=== PATIENT | male | born 1955 | race American Indian/Alaskan Native ===

== ENCOUNTER 2017-04-17 05:29 | Emergency (ER) | payer OTHER ==
[2017-04-17 05:51] VITALS: BMI 35.3
[2017-04-17 06:07] VITALS: TEMP 97.6
[2017-04-17 07:23] VITALS: BP 171/105; PULSE 76; RESP 18; O2SAT 97
--- NOTE | 2017-04-23 09:45 | ED PDOC ---
Arrival/HPI - General Chief Complaint: Back Pain Time Seen by Provider: 04/17/17 06:16 - History of Present Illness Narrative History of Present Illness (Text): 62M c/o intermittent bilateral mid-low back pain for the last 2 weeks, worse with movement. he also mentions a tingling sensation under his right armpit for about the same duration. ibuprofen has not helped much. no fever, weakness, numbness, incontinence, saddle anesthesia, or abdominal pain. 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 Past Medical History - Cardiac Hx Cardiac Disorders: Yes Hx Hypertension: Yes - Pulmonary Hx Respiratory Disorders: No - Neurological Hx Neurological Disorder: No - HEENT Hx HEENT Disorder: No - Renal Hx Renal Disorder: No - Endocrine/Metabolic Hx Endocrine Disorders: No - Hematological/Oncological Hx Anemia: Yes - Integumentary Hx Dermatological Disorder: No - Musculoskeletal/Rheumatological Hx Musculoskeletal Disorders: No - Gastrointestinal Hx Gastrointestinal Disorders: No - Genitourinary/Gynecological Hx Genitourinary Disorders: No - Psychiatric Hx Psychophysiologic Disorder: No Hx Substance Use: No - Surgical History Hx Appendectomy: Yes - Anesthesia Hx Anesthesia: Yes Hx Anesthesia Reactions: No Hx Malignant Hyperthermia: No Family/Social History Family/Social History: Other (nc) Smoking Status: Never Smoked Hx Alcohol Use: No Hx Substance Use: No Allergies/Home Meds Allergies/Adverse Reactions: Allergies ASIA Inhibitors Allergy (Severe, Verified 04/17/17 05:51) ANGIOEDEMA levofloxacin [From Levaquin] Allergy (Verified 04/17/17 05:51) ANAPHYLAXIS Home Medications: Home Meds Medication Instructions Recorded Confirmed Aspirin [Aspirin EC] 81 mg PO DAILY 04/30/16 04/17/17 Atorvastatin [Lipitor] 40 mg PO DIN 04/30/16 04/17/17 Furosemide [Lasix] 40 mg PO DAILY 04/30/16 04/17/17 Review of Systems - Review of Systems Constitutional: absent: Fatigue, Fevers Respiratory: absent: SOB, Cough Cardiovascular: absent: Chest Pain Gastrointestinal: absent: Abdominal Pain, Nausea, Vomiting Genitourinary Male: absent: Dysuria Musculoskeletal: Back Pain Neurological: absent: Headache, Focal Weakness, Speech Changes Physical Exam Vital Signs Reviewed: Yes Vital Signs Temp Pulse Resp BP Pulse Ox 04/17/17 07:22 76 18 171/105 H 97 04/17/17 06:55 196/126 H 04/17/17 06:54 74 198/126 H 04/17/17 06:06 97.6 F 77 17 176/106 H 99 Appearance: Positive for: Well-Appearing, Non-Toxic, Comfortable Pain Distress: None Mental Status: Positive for: Alert and Oriented X 3 - Systems Exam Head: Present: Atraumatic Pupils: Present: PERRL Extroacular Muscles: Present: EOMI Mouth: Present: Moist Mucous Membranes Neck: Present: Normal Range of Motion Respiratory/Chest: Present: Clear to Auscultation, Good Air Exchange. No: Respiratory Distress, Accessory Muscle Use Cardiovascular: Present: Regular Rate and Rhythm Abdomen: No: Tenderness, Distention Back: No: Midline Tenderness Upper Extremity: Present: NORMAL PULSES Lower Extremity: Present: NORMAL PULSES Neurological: Present: GCS=15, Motor Func Grossly Intact, Normal Sensory Function, Norm Deep Tendon Reflexes, Gait Normal, Other (no focal deficits) Skin: Present: Warm, Dry Psychiatric: Present: Alert, Oriented x 3 Medical Decision Making ED Course and Treatment: the pt appears well, no red flag sx for back pain which seems to be positional, normal neuro exam. will rx cyclobenzoprine and rec close f/u w pcp and return if worse pt v/u and agrees w plan - Medication Orders Current Medication Orders: Discontinued Medications Cyclobenzaprine HCl (Flexeril) 10 mg PO STAT STA Stop: 04/17/17 06:27 Last Admin: 04/17/17 06:55 Dose: 10 mg Furosemide (Lasix) 40 mg PO STAT STA Stop: 04/17/17 06:27 Last Admin: 04/17/17 06:55 Dose: 40 mg Ketorolac Tromethamine (Toradol) 15 mg IM STAT STA Stop: 04/17/17 06:27 Last Admin: 04/17/17 06:55 Dose: 15 mg Labetalol HCl (Trandate) 25 mg PO STAT STA Stop: 04/17/17 06:28 Last Admin: 04/17/17 06:54 Dose: 25 mg Disposition/Present on Arrival - Present on Arrival Any Indicators Present on Arrival: No History of DVT/PE: No History of Uncontrolled Diabetes: No Urinary Catheter: No History of Decub. Ulcer: No History Surgical Site Infection Following: None - Disposition Have Diagnosis and Disposition been Completed?: Yes Diagnosis: Back pain Disposition: HOME/ ROUTINE Disposition Time: :00 Condition: STABLE Discharge Instructions (ExitCare): Back Pain (ED) Additional Instructions: Please follow up with your doctor. Return to the ER for any worsening symptoms or for any other concerns. Prescriptions: Cyclobenzaprine [Cyclobenzaprine HCl] 10 mg PO TID PRN #20 tab PRN Reason: Pain, Severe (8-10) Forms: [employer] (Albanian)
== END 2017-04-17 07:24 | disposition home or self-care (01) ==
LOC: ED 05:29
DX: M54.5 Low back pain (principal); I10 Essential (primary) hypertension
CPT/HCPCS: 96372; 99283; J1885

== ENCOUNTER 2017-04-25 19:26 | Inpatient (IN) | payer OTHER ==
--- NOTE | 2017-04-25 20:12 | ED PDOC ---
Arrival/HPI - General Chief Complaint: Weakness/Neurological Deficit Time Seen by Provider: 04/25/17 19:42 Historian: Patient - History of Present Illness Narrative History of Present Illness (Text): 04/25/17 20:08 A 62 year old male whose past medical history includes, hypertension and stroke , resentes to the Emergency department with a complain of left sided weakness, numbness, and slurred speech. The patient notes that he had similar symptoms last night, but some symptoms improved. He states that at work today around 6PM the symptoms returned. The patient denies fevers, chills, headache, dizziness, chest pain, shortness of breath, nausea, vomiting,diarrhea, cough, or any other complaint. 04/25/17 21:06 Time/Duration: Other (Last nigth) Symptom Course: Unchanged Activities at Onset: Rest, Light Context: Work Past Medical History - Provider Review Nursing Documentation Reviewed: Yes - Cardiac Hx Cardiac Disorders: Yes Hx Hypertension: Yes - Pulmonary Hx Respiratory Disorders: No - Neurological Hx Neurological Disorder: No - HEENT Hx HEENT Disorder: No - Renal Hx Renal Disorder: No - Endocrine/Metabolic Hx Endocrine Disorders: No - Hematological/Oncological Hx Anemia: Yes - Integumentary Hx Dermatological Disorder: No - Musculoskeletal/Rheumatological Hx Musculoskeletal Disorders: No - Gastrointestinal Hx Gastrointestinal Disorders: No - Genitourinary/Gynecological Hx Genitourinary Disorders: No - Psychiatric Hx Psychophysiologic Disorder: No Hx Substance Use: No - Surgical History Hx Appendectomy: Yes - Anesthesia Hx Anesthesia: Yes Hx Anesthesia Reactions: No Hx Malignant Hyperthermia: No Family/Social History - Physician Review Nursing Documentation Reviewed: Yes Family/Social History: No Known Family HX Smoking Status: Never Smoked Hx Alcohol Use: No Hx Substance Use: No Allergies/Home Meds Allergies/Adverse Reactions: Allergies ASIA Inhibitors Allergy (Severe, Verified 04/17/17 05:51) ANGIOEDEMA levofloxacin [From Levaquin] Allergy (Verified 04/17/17 05:51) ANAPHYLAXIS Home Medications: Home Meds Medication Instructions Recorded Confirmed Aspirin [Aspirin EC] 81 mg PO DAILY 04/30/16 04/28/17 Review of Systems - Physician Review All systems were reviewed & negative as marked: Yes - Review of Systems Constitutional: absent: Fevers, Night Sweats Respiratory: absent: SOB, Cough Cardiovascular: absent: Chest Pain Gastrointestinal: absent: Abdominal Pain, Diarrhea, Nausea, Vomiting Neurological: absent: Headache, Dizziness Physical Exam Vital Signs Reviewed: Yes Vital Signs Temp Pulse Resp BP Pulse Ox 04/25/17 22:46 74 16 186/96 H 97 04/25/17 22:39 76 16 182/110 H 97 04/25/17 22:29 78 16 190/86 H 97 04/25/17 21:55 83 210/111 H 04/25/17 21:44 84 16 204/110 H 99 04/25/17 20:53 92 H 16 123/43 L 99 04/25/17 20:38 90 16 209/111 H 94 L 04/25/17 20:23 90 16 206/120 H 95 04/25/17 19:34 98.7 F 93 H 18 200/122 H 97 Temperature: Afebrile Blood Pressure: Hypertensive Pulse: Tachycardic Respiratory Rate: Normal Appearance: Positive for: Well-Appearing, Non-Toxic, Comfortable Pain Distress: None Mental Status: Positive for: Alert and Oriented X 3 - Systems Exam Head: Present: Atraumatic, Normocephalic Pupils: Present: PERRL Extroacular Muscles: Present: EOMI Conjunctiva: Present: Normal Mouth: Present: Moist Mucous Membranes Neck: Present: Normal Range of Motion Respiratory/Chest: Present: Clear to Auscultation, Good Air Exchange. No: Respiratory Distress, Accessory Muscle Use Cardiovascular: Present: Regular Rate and Rhythm, Normal S1, S2. No: Murmurs Abdomen: Present: Normal Bowel Sounds. No: Tenderness, Distention, Peritoneal Signs Back: Present: Normal Inspection Upper Extremity: Present: Normal Inspection. No: Cyanosis, Edema Lower Extremity: Present: Normal Inspection, Swelling ((+)symetric swelling to b /l lower legs). No: Edema Neurological: Present: GCS=15, CN II-XII Intact, Speech Normal, Normal Sensory Function, Normal Cerebellar Funct, Other ((+)slurred speech). No: Motor Func Grossly Intact ((+)4/5 b/l upper and loweer) Skin: Present: Warm, Dry, Normal Color. No: Rashes Psychiatric: Present: Alert, Oriented x 3, Normal Insight, Normal Concentration Medical Decision Making ED Course and Treatment: 04/25/17 20:15 Impression: A 62 year old male with left sided numbness, weakness, and slurred speech since 6pm today. Plan: -- EKG -- Head CT -- Chest X-ray -- Urinalysis -- Labs -- Reassess and disposition Prior Visits: Patient last seen on 04/17/17 for mid-lower back pain. Progress Notes: CT Head Without Intravenous Contrast IMPRESSION: Patchy decreased attenuation in periventricular white matter suggesting microvascular disease, age-indeterminate; no bleed. If there is suspicion for acute stroke, MRI advised. Dictated and Authenticated by: Monica Faulkner MD 04/25/2017 8:38 PM Eastern Time ([place] & [place]) 04/25/17 21:[address] cid, requests permissive hypertension, asa, plavix. low nih, unclear onset, not tpa canddiate. symptoms later resolved in er. now neuro intact, no symptoms, dr briceno accepts - Lab Interpretations Lab Results: 04/25/17 20:15 04/25/17 20:15 Lab Results 04/25/17 20:30: Hemoglobin A1c 5.3 04/25/17 20:15: Blood Type O NEGATIVE, Antibody Screen Negative, BBK History Checked No verified bt 04/25/17 20:15: Sodium 141, Potassium 3.5 L, Chloride 101, Carbon Dioxide 29, Anion Gap 15, BUN 22 H, Creatinine 1.6 H, Est GFR ( Amer) 53, Est GFR ( Non-Af Amer) 44, Random Glucose 91, Calcium 9.3, Total Bilirubin 0.8, AST 30, ALT 23, Alkaline Phosphatase 87, Troponin I 0.04, Total Protein 8.2, Albumin 4.2 , Globulin 4.0, Albumin/Globulin Ratio 1.1, Triglycerides 251 H, Cholesterol 240 H, LDL Cholesterol Direct 136 H, HDL Cholesterol 46 04/25/17 20:15: PT 11.1, INR 1.03, APTT 31.4 H 04/25/17 20:15: WBC 10.6 D, RBC 3.88, Hgb 12.8 L, Hct 37.1 L, MCV 95.6, MCH 33.0, MCHC 34.5, RDW 13.3, Plt Count 291, MPV 9.1, Gran % 62.3, Lymph % (Auto) 26.6, [place] % (Auto) 8.2 H, Eos % (Auto) 2.6, Baso % (Auto) 0.3, Gran # 6.59 H, Lymph # 2.8, [place] # 0.9 H, Eos # 0.3, Baso # 0.03 04/25/17 19:59: POC Glucose (mg/dL) 79 I have reviewed the lab results: Yes - RAD Interpretation Radiology Orders: 04/25/17 19:59 HEAD W/O (CODE STROKE) [CT] Stat CHEST PORTABLE [RAD] Stat - EKG Interpretation Interpreted by ED Physician: Yes Type: 12 lead EKG - Medication Orders Current Medication Orders: Discontinued Medications Aminophylline (Aminophylline 25 Mg/Ml Inj) Confirm Administered Dose 250 mg .ROUTE .STK-MED ONE Stop: 04/27/17 08:48 Last Admin: 04/27/17 13:56 Dose: Not Given Non-Admin Reason: Patient in Cardiology Amlodipine Besylate (Norvasc) 10 mg PO DAILY [facility] Last Admin: 04/27/17 11:27 Dose: 10 mg Comments: pt just returned from stress test and kidney U/s Aspirin (Aspirin Chewable) 81 mg PO STAT STA Stop: 04/25/17 20:54 Last Admin: 04/25/17 21:47 Dose: 81 mg Aspirin (Ecotrin) 81 mg PO DAILY [facility] Last Admin: 04/28/17 10:09 Dose: 81 mg Atorvastatin Calcium (Lipitor) 40 mg PO STAT STA Stop: 04/25/17 22:41 Last Admin: 04/26/17 02:09 Dose: Atorvastatin Calcium (Lipitor) 40 mg PO DIN [facility] Last Admin: 04/28/17 17:28 Dose: 40 mg Clopidogrel Bisulfate (Plavix) 300 mg PO STAT STA Stop: 04/25/17 20:54 Last Admin: 04/25/17 21:47 Dose: 300 mg Clopidogrel Bisulfate (Plavix) 75 mg PO DAILY [facility] Last Admin: 04/28/17 10:09 Dose: 75 mg Enoxaparin Sodium (Lovenox) 40 mg SC DAILY [facility] PRN Reason: Protocol Last Admin: 04/28/17 10:10 Dose: 40 mg Furosemide (Lasix) 40 mg IVP DAILY [facility] Last Admin: 04/28/17 10:08 Dose: 40 mg Hydralazine HCl (Apresoline) 10 mg PO QID PRN PRN Reason: for SBP>170&/or diasolic>100 Labetalol HCl (Trandate) 20 mg IV STAT STA Stop: 04/25/17 21:50 Last Admin: 04/25/17 21:55 Dose: 20 mg Labetalol HCl (Trandate) 20 mg IV Q6H PRN PRN Reason: SBP > 200 Last Admin: 04/26/17 10:36 Dose: 20 mg Labetalol HCl (Trandate) 300 mg PO TID [facility] Last Admin: 04/27/17 11:25 Dose: 300 mg Comments: pt just returned from stress test and kidney U/s Labetalol HCl (Trandate) 400 mg PO TID [facility] Last Admin: 04/28/17 17:26 Dose: 400 mg Pantoprazole Sodium (Protonix Inj) 40 mg IVP DAILY [facility] Last Admin: 04/27/17 11:25 Dose: 40 mg Comments: pt just returned from stress test and kidney U/s Pantoprazole Sodium (Protonix Ec Tab) 40 mg PO 0600 [facility] Last Admin: 04/28/17 06:34 Dose: 40 mg Potassium Chloride (Potassium Chloride Oral Soln) 40 meq PO STAT STA Stop: 04/25/17 22:51 Last Admin: 04/26/17 02:09 Dose: Potassium Chloride (K-Dur 20 Meq Er Tab) 40 meq PO ONCE ONE Stop: 04/26/17 15:42 Last Admin: 04/26/17 20:57 Dose: 40 meq Potassium Chloride (K-Dur 20 Meq Er Tab) 40 meq PO ONCE ONE Stop: 04/27/17 09:03 Last Admin: 04/27/17 12:24 Dose: 40 meq Comments: awaiting pharmacy Regadenoson (Lexiscan) Confirm Administered Dose 0.4 mg IVP .STK-MED ONE Stop: 04/27/17 08:48 Last Admin: 04/27/17 13:56 Dose: Not Given Non-Admin Reason: Patient in Cardiology Spironolactone (Aldactone) 25 mg PO BID [facility] Spironolactone (Aldactone) 25 mg PO BID [facility] Last Admin: 04/28/17 17:27 Dose: 25 mg NIHSS Scale ([place]) Time Performed: 21:09 - How Severe is the Stoke Baseline Level of Consciousness: 0=Alert LOC to Questions: 0=Both comments correct LOC to commands: 0=Obeys both correctly Best Gaze: 0=Normal Visual: 0=No visual loss Facial: 0=Normal Motor Arm - Left: 1=Drift noted before 10 sec Motor Arm - Right: 0=No drift Motor Leg - Left: 1=Drift before 5 sec Motor Leg - Right: 0=No drift Limb Ataxia: 0=Absent Sensory: 0=Normal Best Language: 1=Mild to moderate aphasia Dysarthia: 0=Normal articulation Extinction & Inattention (Neglect): 0=Normal, no object Score: 3 Risk Level: Minor Stroke Risk rTPA Inclusion/Exclusion - Refusal of Treatment Patient Refused Treatment: No - Inclusion Criteria for Altepase Patient is 18 years or Older: Yes The Clinical Diagnosis of Ischemic Stroke That is Causing a Potentially Disabling Neurological Deficit: No Time of Onset is Well Established to be Less Than 270 Minute Before Treatment Would Begin: No Risk/Benefit Discussed With Patient/Family Member Present: Yes - Scribe Statement The provider has reviewed the documentation as recorded by the Scribe Karoline Oropeza Provider Scribe Attestation: All medical record entries made by the Scribe were at my direction and personally dictated by me. I have reviewed the chart and agree that the record accurately reflects my personal performance of the history, physical exam, medical decision making, and the department course for this patient. I have also personally directed, reviewed, and agree with the discharge instructions and disposition. Disposition/Present on Arrival - Present on Arrival Any Indicators Present on Arrival: No History of DVT/PE: No History of Uncontrolled Diabetes: No Urinary Catheter: No History of Decub. Ulcer: No History Surgical Site Infection Following: None - Disposition Have Diagnosis and Disposition been Completed?: Yes Diagnosis: Ischemic stroke Disposition: HOSPITALIZED Disposition Time: 09:00 Condition: FAIR
[2017-04-25 20:31] LABS: BASO # 0.03 K/mm3 (0.0-2.0); BASO % 0.3 % (0.0-3.0); EOS # 0.3 (0.0-0.7); EOS % 2.6 % (1.5-5.0); GRAN # 6.59 (1.4-6.5); GRAN % 62.3 % (50.0-68.0); HEMOGLOBIN 12.8 g/dL (14.0-18.0); LYMPH # 2.8 (1.2-3.4); LYMPH % 26.6 % (22.0-35.0); MEAN CELL VOLUME 95.6 fl (80.0-105.0); MEAN CORPUSCULAR HGB CONC 34.5 g/dl (31.0-37.0); MEAN PLATELET VOLUME 9.1 fl (7.0-11.0); MONO # 0.9 (0.1-0.6); MONO % 8.2 % (1.0-6.0); PLATELET COUNT 291 10^3/uL (120.0-450.0); RBC 3.88 10^6/uL (3.5-6.1); RED CELL DISTRIBUTION WIDTH 13.3 % (11.5-14.5); WHITE BLOOD COUNT 10.6 10^3/ul (4.5-11.0)
--- NOTE | 2017-04-25 20:39 | CT ---
EXAM: CT Head Without Intravenous Contrast CLINICAL HISTORY: 62 years old, male; Signs and symptoms; Other: Code sroke; Additional info: Code stroke TECHNIQUE: Axial computed tomography images of the head/brain without intravenous contrast. All CT scans at this facility use one or more dose reduction techniques, viz.: automated exposure control; ma/kV adjustment per patient size (including targeted exams where dose is matched to indication; i.e. head); or iterative reconstruction technique. EXAM DATE/TIME: 04/25/2017 7:59 PM COMPARISON: CT - HEAD W/O CONTRAST 11/04/2016 9:05:36 PM FINDINGS: Brain: Ventricles are normal in size. There is no midline shift. There is patchy decreased attenuation in periventricular white matter right greater than left. There are no intra-axial or extra-axial mass lesions or areas of hemorrhage. There are no abnormal fluid collections. Rust-white differentiation is maintained. Ventricles: See above. Bones: Cranial vault is intact. Soft tissues: unremarkable Sinuses: There is no acute sinusitis. Ears and mastoids: Middle ears and mastoids are unremarkable Orbits: Orbital contents are unremarkable. IMPRESSION: Patchy decreased attenuation in periventricular white matter suggesting microvascular disease, age-indeterminate; no bleed If there is suspicion for acute stroke, MRI advised
[2017-04-25 20:45] LABS: INR 1.03 (0.93-1.08); PARTIAL THROMBOPLASTIN TIME 31.4 Seconds (23.7-30.8); PROTHROMBIN TIME 11.1 Seconds (9.9-11.8)
[2017-04-25 20:46] LABS: ALB/GLOB RATIO 1.1 (1.1-1.8); ALBUMIN 4.2 g/dL (3.0-4.8); CALCIUM 9.3 mg/dL (8.4-10.5)
[2017-04-25 20:57] LABS: TROPONIN I 0.04 ng/mL
[2017-04-25] MEDS ORDERED: Labetalol 5 mg/ml Inj 20ML IV STA (21:49)
[2017-04-25] MEDS ORDERED: Potassium Chloride 40 mEq/30 ml LIQ UD PO STA (22:50)
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
[2017-04-26 01:22] VITALS: BMI 41.1
[2017-04-26] MEDS ORDERED: Labetalol 5 mg/ml Inj 20ML IV PRN (02:57)
[2017-04-26 07:13] LABS: BASO # 0.03 K/mm3 (0.0-2.0); BASO % 0.4 % (0.0-3.0); EOS # 0.2 (0.0-0.7); EOS % 2.5 % (1.5-5.0); GRAN # 4.93 (1.4-6.5); GRAN % 58.3 % (50.0-68.0); HEMOGLOBIN 12.1 g/dL (14.0-18.0); LYMPH # 2.6 (1.2-3.4); LYMPH % 30.9 % (22.0-35.0); MEAN CORPUSCULAR HEMOGLOBIN 32.5 pg (25.0-35.0); MEAN CORPUSCULAR HGB CONC 33.5 g/dl (31.0-37.0); MEAN PLATELET VOLUME 9.4 fl (7.0-11.0); MONO # 0.7 (0.1-0.6); MONO % 7.9 % (1.0-6.0); PLATELET COUNT 276 10^3/uL (120.0-450.0); RBC 3.72 10^6/uL (3.5-6.1); RED CELL DISTRIBUTION WIDTH 13.4 % (11.5-14.5); WHITE BLOOD COUNT 8.5 10^3/ul (4.5-11.0)
[2017-04-26 07:15] LABS: ALBUMIN 3.8 g/dL (3.0-4.8); ALT/SGPT 24 U/L (7-56); AST/SGOT 32 U/L (15-59); BLOOD UREA NITROGEN 20 mg/dL (7-21); CALCIUM 8.7 mg/dL (8.4-10.5); GFR AFRICAN-AMERICAN > 60; GFR NON-AFRICAN AMERICAN > 60
--- NOTE | 2017-04-26 07:48 | RAD ---
HISTORY: code stroke COMPARISON: No prior. FINDINGS: LUNGS: No active pulmonary disease. PLEURA: No significant pleural effusion identified, no pneumothorax apparent. CARDIOVASCULAR: Normal. OSSEOUS STRUCTURES: No significant abnormalities. VISUALIZED UPPER ABDOMEN: Normal. OTHER FINDINGS: None. IMPRESSION: No active disease.
--- NOTE | 2017-04-26 10:14 | CP.PCM.PN ---
Subjective - Date & Time of Evaluation Date of Evaluation: 04/26/17 Time of Evaluation: 10:11 - Subjective Subjective: swallow screen Objective - Vital Signs/Intake and Output Vital Signs (last 24 hours): Temp Pulse Resp BP Pulse Ox 97.7 F 73 20 187/112 H 96 04/26/17 06:00 04/26/17 06:00 04/26/17 06:00 04/26/17 06:00 04/26/17 06:00 Intake and Output: 04/26/17 04/26/17 06:59 18:59 Output Total 600 Balance -600 - Medications Medications: Current Medications Aspirin (Ecotrin) 81 mg PO DAILY [facility] Atorvastatin Calcium (Lipitor) 40 mg PO DIN [facility] Clopidogrel Bisulfate (Plavix) 75 mg PO DAILY [facility] Labetalol HCl (Trandate) 20 mg IV Q6H PRN PRN Reason: SBP > 200 Pantoprazole Sodium (Protonix Inj) 40 mg IVP DAILY [facility] - Labs Labs: 04/26/17 06:30 04/26/17 06:30 PT 11.1 Seconds (9.9-11.8) 04/25/17 20:15 INR 1.03 (0.93-1.08) 04/25/17 20:15 APTT 31.4 Seconds (23.7-30.8) H 04/25/17 20:15 - Constitutional Appears: Well, Non-toxic, No Acute Distress - Head Exam Head Exam: ATRAUMATIC - Eye Exam Eye Exam: EOMI, Normal appearance Pupil Exam: PERRL - ENT Exam ENT Exam: Mucous Membranes Moist, Normal Exam - Neck Exam Neck Exam: Full ROM - Extremities Exam Extremities Exam: Full ROM, Normal Capillary Refill, Normal Inspection - Neurological Exam Neuro motor strength exam: Left Upper Extremity: 5, Right Upper Extremity: 5, Left Lower Extremity: 5, Right Lower Extremity: 5 - Psychiatric Exam Psychiatric exam: Normal Affect, Normal Mood - Skin Skin Exam: Dry, Normal Color, Warm Assessment and Plan - Assessment and Plan (Free Text) Assessment: swallow screen Plan: patient passed swallow screen with out any problem, no cough, drooling, no difficulty swallowing 8oz of water. swallow evaluation not indicated.
--- NOTE | 2017-04-26 13:19 | CARD ---
APPROVED REPORT EKG Measurement Heart [id number] <Conclusion> Normal sinus rhythm Possible Left atrial enlargement Nonspecific T wave abnormality Prolonged QT Abnormal ECG
--- NOTE | 2017-04-26 14:13 | CP.PCM.PN ---
<TABATHA SCHULTZ - Last Filed: 04/26/17 13:55> Subjective - Date & Time of Evaluation Date of Evaluation: 04/26/17 Time of Evaluation: 13:55 - Subjective Subjective: Medicine Progress Note: Pt seen and examined at bedside. Pt denies any acute overnight events. Pt states he feels better and has improved and equal strength b/l UE. Pt states that his BP normally runs high at home and is intermittent with his medication use. Pt denies n/v/d, fever, chills, vertigo, and abdominal pain. Objective - Vital Signs/Intake and Output Vital Signs (last 24 hours): Temp Pulse Resp BP Pulse Ox 98.5 F 70 20 178/98 H 96 04/26/17 11:56 04/26/17 11:56 04/26/17 11:56 04/26/17 12:19 04/26/17 06:00 Intake and Output: 04/26/17 04/26/17 06:59 18:59 Output Total 600 Balance -600 - Medications Medications: Current Medications Aspirin (Ecotrin) 81 mg PO DAILY [facility] Last Admin: 04/26/17 10:35 Dose: 81 mg Atorvastatin Calcium (Lipitor) 40 mg PO DIN [facility] Clopidogrel Bisulfate (Plavix) 75 mg PO DAILY [facility] Last Admin: 04/26/17 10:35 Dose: 75 mg Furosemide (Lasix) 40 mg IVP DAILY [facility] Last Admin: 04/26/17 12:19 Dose: 40 mg Labetalol HCl (Trandate) 20 mg IV Q6H PRN PRN Reason: SBP > 200 Last Admin: 04/26/17 10:36 Dose: 20 mg Labetalol HCl (Trandate) 300 mg PO TID [facility] Pantoprazole Sodium (Protonix Inj) 40 mg IVP DAILY [facility] Last Admin: 04/26/17 10:35 Dose: 40 mg - Labs Labs: 04/26/17 06:30 04/26/17 06:30 PT 11.1 Seconds (9.9-11.8) 04/25/17 20:15 INR 1.03 (0.93-1.08) 04/25/17 20:15 APTT 31.4 Seconds (23.7-30.8) H 04/25/17 20:15 - Constitutional Appears: No Acute Distress - Head Exam Head Exam: ATRAUMATIC, NORMOCEPHALIC - Eye Exam Eye Exam: EOMI, PERRL - ENT Exam ENT Exam: Mucous Membranes Moist - Neck Exam Neck Exam: Full ROM. absent: Lymphadenopathy, Tenderness, Thyromegaly - Respiratory Exam Respiratory Exam: Clear to Ausculation Bilateral. absent: Rales, Rhonchi, Wheezes - Cardiovascular Exam Cardiovascular Exam: RRR. absent: Gallop, Rubs, Murmur - GI/Abdominal Exam GI & Abdominal Exam: Soft. absent: Guarding, Rigid, Tenderness, Rebound - Extremities Exam Extremities Exam: Full ROM. absent: Joint Swelling, Tenderness - Neurological Exam Neurological Exam: Alert, Awake, Oriented x3 - Skin Skin Exam: Dry, Intact, Normal Color, Warm Assessment and Plan - Assessment and Plan (Free Text) Assessment: 62 yo AA male with PMH of HTN, HLD admitted for evaluation and treatment for transient left sided weakness and slurred speech. Plan: 1) Hypertension - Labetalol 300 mg PO TID - Labetalol IV for SBP >200 - Lasix 40 mg IVP - HHD, 2 g Na - Cont to monitor BP - Educate pt on importance of medication compliance and BP control - Diet Education 2) Left sided weakness and slurred speech - Non-contrast CT of the head demonstrates patchy decreased attenuation in the periventricular white matter suggesting microvascular disease; no bleed. - EKG demonstrates NSR, possible left atrial enlargement, prolonged QT interval , non specific T wave abnormalities - Swallow study normal - Neuro and Cardio consulted - F/U MRI brain w/out contrast - F/U Carotid and vertebral artery US - F/U Echo - Neurochecks q2h - Cont Plavix, Aspirin 3) Peripheral Edema - F/U LE ultrasound - Lasix - Elevate affected extremity - Compression stockings 4) Dyslipidemia - Cont Lipitor - Low cholesterol diet, HHD, low NA 5) DARLENE most likely secondary to hypertensive emergency, resolved - Continue to monitor kidney function with serial CMP - Nephrology consulted 6) Hypokalemia, resolved - Cont to monitor electrolytes - Nephrology consulted 7) GI/DVT PPx - Protonix - SCDs Pt seen and discussed in detail with Dr. Wheat. <Qasim Wheat - Last Filed: 04/26/17 16:21> Objective - Vital Signs/Intake and Output Vital Signs (last 24 hours): Temp Pulse Resp BP Pulse Ox 98.5 F 76 20 148/88 96 04/26/17 11:56 04/26/17 14:24 04/26/17 11:56 04/26/17 14:24 04/26/17 06:00 Intake and Output: 04/26/17 04/26/17 06:59 18:59 Intake Total 420 Output Total 800 Balance -380 - Medications Medications: Current Medications Aspirin (Ecotrin) 81 mg PO DAILY [facility] Last Admin: 04/26/17 10:35 Dose: 81 mg Atorvastatin Calcium (Lipitor) 40 mg PO DIN [facility] Clopidogrel Bisulfate (Plavix) 75 mg PO DAILY [facility] Last Admin: 04/26/17 10:35 Dose: 75 mg Furosemide (Lasix) 40 mg IVP DAILY [facility] Last Admin: 04/26/17 12:19 Dose: 40 mg Hydralazine HCl (Apresoline) 10 mg PO QID PRN PRN Reason: for SBP>170&/or diasolic>100 Labetalol HCl (Trandate) 20 mg IV Q6H PRN PRN Reason: SBP > 200 Last Admin: 04/26/17 10:36 Dose: 20 mg Labetalol HCl (Trandate) 300 mg PO TID [facility] Last Admin: 04/26/17 14:24 Dose: 300 mg Pantoprazole Sodium (Protonix Inj) 40 mg IVP DAILY [facility] Last Admin: 04/26/17 10:35 Dose: 40 mg Spironolactone (Aldactone) 25 mg PO BID [facility] - Labs Labs: 04/26/17 06:30 04/26/17 06:30 PT 11.1 Seconds (9.9-11.8) 04/25/17 20:15 INR 1.03 (0.93-1.08) 04/25/17 20:15 APTT 31.4 Seconds (23.7-30.8) H 04/25/17 20:15 Attending/Attestation - Attestation I have personally seen and examined this patient.: Yes I have fully participated in the care of the patient.: Yes I have reviewed all pertinent clinical information, including history, physical exam and plan: Yes Notes (Text): 04/26/17 16:18 attending note; Patient seen and examined with resident. Patient is a 62-year-old male with a past medical history of hypertension, questionable TIA, allergic reaction to ASIA inhibitor is admitted with intermittent left-sided weakness and slurred speech.CT head showed chronic microvascular changes. MR/ MRA ordered. neurology evaluation appreciated. Abnormal EKG; secondary to uncontrolled hypertension. Cardiology evaluation requested. Acute renal failure; possibly secondary to fluctuation in BP. Patient has uncontrolled blood pressure for the past 2 years. Medication compliance/dietary education insisted. physical therapy evaluation requested. Upon discharge the patient will follow up with PMD Dr. Corwin Miller.
--- NOTE | 2017-04-26 14:17 | CP.PCM.CON ---
History of Present Illness - History of Present Illness History of Present Illness: Mr. Palacio is a 62-year-old man with a past medical history of HTN, HLD who has experienced previous TIAs and states that over the last two days he has had intermittent left sided weakness. Yesterday, his left arm and leg weakness was fluctuating and progressing at times. He presented to the ED and a CT scan of the head was done which showed chronic small vessel disease, but no acute findings. Today, the patient states that he is back to baseline. His NIHSS=0. He had no complaints. Review of Systems - Review of Systems All systems: reviewed and no additional remarkable complaints except Past Patient History - Past Social History Smoking Status: Never Smoked - CARDIAC Hx Cardiac Disorders: Yes Hx Hypertension: Yes - PULMONARY Hx Respiratory Disorders: No - NEUROLOGICAL Hx Neurological Disorder: No - HEENT Hx HEENT Problems: No - RENAL Hx Chronic Kidney Disease: No - ENDOCRINE/METABOLIC Hx Endocrine Disorders: No - HEMATOLOGICAL/ONCOLOGICAL Hx Anemia: Yes - INTEGUMENTARY Hx Dermatological Problems: No - MUSCULOSKELETAL/RHEUMATOLOGICAL Hx Musculoskeletal Disorders: No - GASTROINTESTINAL Hx Gastrointestinal Disorders: No - GENITOURINARY/GYNECOLOGICAL Hx Genitourinary Disorders: No - PSYCHIATRIC Hx Psychophysiologic Disorder: No Hx Substance Use: No - SURGICAL HISTORY Hx Appendectomy: Yes - ANESTHESIA Hx Anesthesia: Yes Hx Anesthesia Reactions: No Hx Malignant Hyperthermia: No Meds Allergies/Adverse Reactions: Allergies Allergy/AdvReac Type Severity Reaction Status Date / Time ASIA Inhibitors Allergy Severe ANGIOEDEMA Verified 04/17/17 05:51 levofloxacin [From Levaquin] Allergy ANAPHYLAXIS Verified 04/17/17 05:51 - Medications Medications: Current Medications Aspirin (Ecotrin) 81 mg PO DAILY [facility] Last Admin: 04/26/17 10:35 Dose: 81 mg Atorvastatin Calcium (Lipitor) 40 mg PO DIN [facility] Clopidogrel Bisulfate (Plavix) 75 mg PO DAILY [facility] Last Admin: 04/26/17 10:35 Dose: 75 mg Furosemide (Lasix) 40 mg IVP DAILY [facility] Last Admin: 04/26/17 12:19 Dose: 40 mg Labetalol HCl (Trandate) 20 mg IV Q6H PRN PRN Reason: SBP > 200 Last Admin: 04/26/17 10:36 Dose: 20 mg Labetalol HCl (Trandate) 300 mg PO TID [facility] Pantoprazole Sodium (Protonix Inj) 40 mg IVP DAILY [facility] Last Admin: 04/26/17 10:35 Dose: 40 mg Physical Exam - Constitutional Appears: Well - Head Exam Head Exam: ATRAUMATIC, NORMAL INSPECTION, NORMOCEPHALIC - Eye Exam Eye Exam: EOMI, Normal appearance, PERRL - Neck Exam Neck exam: Positive for: Normal Inspection - Respiratory Exam Respiratory Exam: Clear to Auscultation Bilateral, NORMAL BREATHING PATTERN - Cardiovascular Exam Cardiovascular Exam: REGULAR RHYTHM, +S1, +S2 - GI/Abdominal Exam GI & Abdominal Exam: Normal Bowel Sounds, Soft. absent: Tenderness - Rectal Exam Rectal Exam: Deferred - Extremities Exam Extremities exam: Positive for: normal inspection - Back Exam Back exam: NORMAL INSPECTION - Neurological Exam Neurological exam: Alert, CN II-XII Intact, Normal Gait, Oriented x3, Reflexes Normal Additional comments: NIHSS = 0 - Expanded Neurological Exam Expanded Patient oriented to: person, place, time Cranial nerves: EOM's Intact: Normal, Facial Sensation: Normal Ataxia: No Cerebellar Function: Finger to Nose: Normal, Heel to Jones: Normal, Romberg: Normal Upper motor neuron: Babinski Sign: Normal Sensory exam: Lower Extremity 2 Point Discrimination: Normal, Lower Extremity Light Touch: Normal, Lower Extremity Pin Prick: Normal, Lower Extremity Temperature: Normal, Upper Extremity 2 Point Discrimination: Normal, Upper Extremity Light Touch: Normal, Upper Extremity Pin Prick: Normal, Upper Extremity Temperature: Normal Neuro motor strength exam: Left Upper Extremity: 5, Right Upper Extremity: 5, Left Lower Extremity: 5, Right Lower Extremity: 5 DTR: Achilles Tendon Left: 2+, Achilles Tendon Right: 2+, Bicep Left: 2+, Bicep Right: 2+, Brachioradialis Left: 2+, Brachioradialis Right: 2+, Patellar Left: 2 +, Patellar Right: 2+, Tricep Left: 2+, Tricep Right: 2+ Results - Vital Signs Recent Vital Signs: Last Vital Signs Temp 98.5 F 04/26/17 11:56 Pulse 70 04/26/17 11:56 Resp 20 04/26/17 11:56 BP 178/98 H 04/26/17 12:19 Pulse Ox 96 04/26/17 06:00 - Labs Result Diagrams: 04/26/17 06:30 04/26/17 06:30 Labs: Laboratory Results - last 24 hr 04/25/17 04/26/17 04/26/17 21:00 00:31 06:30 WBC RBC Hgb Hct MCV MCH MCHC RDW Plt Count MPV Gran % Lymph % (Auto) [place] % (Auto) Eos % (Auto) Baso % (Auto) Gran # Lymph # [place] # Eos # Baso # Sodium 141 Potassium 3.6 Chloride 102 Carbon Dioxide 30 Anion Gap 13 BUN 20 Creatinine 1.2 Est GFR ( Amer) > 60 Est GFR (Non-Af Amer) > 60 POC Glucose (mg/dL) 100 Random Glucose 94 Calcium 8.7 Total Bilirubin 0.9 AST 32 ALT 24 Alkaline Phosphatase 76 Total Protein 7.6 Albumin 3.8 Globulin 3.8 Albumin/Globulin Ratio 1.0 L Blood Type Confirm O NEGATIVE 04/26/17 04/26/17 04/26/17 06:30 08:00 11:12 WBC 8.5 RBC 3.72 Hgb 12.1 L Hct 36.1 L MCV 97.0 MCH 32.5 MCHC 33.5 RDW 13.4 Plt Count 276 MPV 9.4 Gran % 58.3 Lymph % (Auto) 30.9 [place] % (Auto) 7.9 H Eos % (Auto) 2.5 Baso % (Auto) 0.4 Gran # 4.93 Lymph # 2.6 [place] # 0.7 H Eos # 0.2 Baso # 0.03 Sodium Potassium Chloride Carbon Dioxide Anion Gap BUN Creatinine Est GFR ( Amer) Est GFR (Non-Af Amer) POC Glucose (mg/dL) 90 136 H Random Glucose Calcium Total Bilirubin AST ALT Alkaline Phosphatase Total Protein Albumin Globulin Albumin/Globulin Ratio Blood Type Confirm Assessment & Plan - Assessment and Plan (Free Text) Assessment: Based on the history and clinical presentation, the patient may be having transient ischemic attacks due to right cerebral hemisphere or possibly brainstem ischemia. Plan: I recommend the followin. Telemetry 2. MRI of the brain without contrast, MRA of the head/neck without contrast 3. Echocardiogram with bubble study 4. Aspirin 81 mg daily and Plavix 75 mg daily for 21 days, per [facility] trial protocol 5. Lipitor 40 mg daily 6. PT/OT eval and treat 7. Fluids with NS at 100 mL/hr 8. NPO till swallow eval 9. DVT Px 10. Stroke education 11. Case management consult Thank you.
--- NOTE | 2017-04-26 14:55 | CP.PCM.CON ---
History of Present Illness - History of Present Illness History of Present Illness: Initial Nephrology Consultation: Assessment: Stable Acute Kidney Injury (N17.9) likely due to hemodyanmic injury by severe HTN and also NSAIDs HTN (I12.9) with emergency, TIA morbid obesity, chronic leg swelling (? lymphedema) and hyperlipidemia Hypokalemia Plan Renal function has improved Hypertension control with meds as ordered. Patient not on ACEI due to hx of allergic reaction (pt says lip swelling). May increase Labetalol to 400 mg q 8 hr if needed. Monitor Input/Output, daily weights and renal function with basic metabolic panel Supplement KDUR he is on ASA and statins Check urine analysis, spot protein/creatinine and albumin/creatinine ratio Secondary HTN work up: renin/mercy, metanephrine, renal artery doppler and TSH. Pt needs exercise, weight loss and lifestyle modifications Dose meds/antibiotics for improved GFR. Avoid fleets enema/magnesium based laxatives. Avoid nephrotoxins/NSAIDs/ iodinated contrast (unless needed emergently) Glycemic control Further work up/management as per primary team Thanks for allowing me to participate in care of your patient. Will follow patient with you. Please call if any Qs Dr Patrick Barrera Office: [phone] Chief Complaint; left side weakness and slurred speech Reason for consult: DARLENE and elevated BP HPI: Pt is a 62 y/o M with hx of hypertension ( since he was 14 years old), morbid obesity, chronic leg swelling (since teenage) and hyperlipidemia came with c/o intermittent and freqent episode of LUE weakness and slurrred speech for last 2 days. Now symptoms has resolved. but noted to have high BP and elevated cr hence renal consulted pt says he was told once that he has too much protein in urine otherwise he is not aware about kidney disease in past Denies chest pain, palpitation, shortness of breath, has chronic leg swelling Denies blood or bubbles in urine Denies OTC/herbal meds. Has been taking NSAIDs as Naproxen for last 2 weeks for back pain. No recent iodinated contrast exposure. No obvious episodes of low BP. he denies smoking, alcohol, drugs, tobacco, sudafed. ROS: Constitutional Symptoms: Denies fever. No chills. had been able to loose some weight Eyes: denies change in vision, denies watery eyes, denies double vision Ears/Nose/Mouth/Throat: Denies Abnormal Taste. No Bad breath no Bad Taste. Cardiovascular: No chest pain. There is no shortness of breath. No palpitations. Pulmonary: No shortness of breath no cough. Gastrointestinal: denies abdominal pain No nausea. No vomiting. Denies change in bowel habits. Denies Bleeding Genitourinary: No Change in force of strain when urinating. No increase in urinary frequency. No pain while urinating. Denies blood in urine. Neurological: Denies headaches. No dizziness. Denies loss of balance. Denies weakness, denies tingling/numbness now Dermatological: No Rash or Bruising or ulcers. Psychiatric: Denies Anxiety. No depression. Denies hallucinations. Rheumatological: No joint pain except Rt back pain. Denies Joint swelling but c/ o chronic leg swelling Endocrine: Denies tiredness/Fatigue denies Heat/Cold Intolerance. All other negative Physical Examination: General Appearance: Comfortable, in no acute respiratory distress, co-operative . morbid obese Vitals reviewed and noted as below Head; Atraumatic, normocephalic ENT: no ulcers no thrush. Tongue is midline. Oropharynx: no rash or ulcers. EYES: Pupils are equal, round and reactive to light accommodation. Eye muscles and extraocular movement intact. Sclera is anicteric. Neck; supple no lymphadenopathy, no thyromegaly or bruit Lungs: Normal respiratory rate/effort. Breath sounds bilateral equal and clear Heart: Normal rate. s1s2 normal. No rub or gallop. Extremities: 2-3+ non-pitting edema. No varicose veins Neurological: Patient is alert, awake and oriented to person, place and time. No focal deficit. Strength bilateral appropriate and equal Skin: Warm and dry. Normal turgor. No rash. Palpitation: Normal elasticity for age Abdomen: Abdomen is soft. Bowel sounds +. There is no abdominal tenderness, no guarding/rigidity no organomegaly Psych: normal insight and normal affect/mood MSK: no joint tenderness or swelling. Digits and nails normal, no deformity : kidney or bladder not palpable Labs/imaging/EKG reviewed. Past medical history, past surgical history, family history, social history, allergy reviewed and noted as below Family hx: no hx of CKD. Rest non-contributory except mother had hx of HTN Past Patient History - Past Social History Smoking Status: Never Smoked - CARDIAC Hx Cardiac Disorders: Yes Hx Hypertension: Yes - PULMONARY Hx Respiratory Disorders: No - NEUROLOGICAL Hx Neurological Disorder: No - HEENT Hx HEENT Problems: No - RENAL Hx Chronic Kidney Disease: No - ENDOCRINE/METABOLIC Hx Endocrine Disorders: No - HEMATOLOGICAL/ONCOLOGICAL Hx Anemia: Yes - INTEGUMENTARY Hx Dermatological Problems: No - MUSCULOSKELETAL/RHEUMATOLOGICAL Hx Musculoskeletal Disorders: No - GASTROINTESTINAL Hx Gastrointestinal Disorders: No - GENITOURINARY/GYNECOLOGICAL Hx Genitourinary Disorders: No - PSYCHIATRIC Hx Psychophysiologic Disorder: No Hx Substance Use: No - SURGICAL HISTORY Hx Appendectomy: Yes - ANESTHESIA Hx Anesthesia: Yes Hx Anesthesia Reactions: No Hx Malignant Hyperthermia: No Meds Allergies/Adverse Reactions: Allergies Allergy/AdvReac Type Severity Reaction Status Date / Time ASIA Inhibitors Allergy Severe ANGIOEDEMA Verified 04/17/17 05:51 levofloxacin [From Levaquin] Allergy ANAPHYLAXIS Verified 04/17/17 05:51 - Medications Medications: Current Medications Aspirin (Ecotrin) 81 mg PO DAILY [facility] Last Admin: 04/26/17 10:35 Dose: 81 mg Atorvastatin Calcium (Lipitor) 40 mg PO DIN [facility] Clopidogrel Bisulfate (Plavix) 75 mg PO DAILY [facility] Last Admin: 04/26/17 10:35 Dose: 75 mg Furosemide (Lasix) 40 mg IVP DAILY [facility] Last Admin: 04/26/17 12:19 Dose: 40 mg Labetalol HCl (Trandate) 20 mg IV Q6H PRN PRN Reason: SBP > 200 Last Admin: 04/26/17 10:36 Dose: 20 mg Labetalol HCl (Trandate) 300 mg PO TID [facility] Last Admin: 04/26/17 14:24 Dose: 300 mg Pantoprazole Sodium (Protonix Inj) 40 mg IVP DAILY [facility] Last Admin: 04/26/17 10:35 Dose: 40 mg Results - Vital Signs Recent Vital Signs: Last Vital Signs Temp 98.5 F 04/26/17 11:56 Pulse 76 04/26/17 14:24 Resp 20 04/26/17 11:56 BP 148/88 04/26/17 14:24 Pulse Ox 96 04/26/17 06:00 - Labs Result Diagrams: 04/26/17 06:30 04/26/17 06:30 Labs: Laboratory Results - last 24 hr 04/25/17 04/26/17 04/26/17 21:00 00:31 06:30 WBC RBC Hgb Hct MCV MCH MCHC RDW Plt Count MPV Gran % Lymph % (Auto) [place] % (Auto) Eos % (Auto) Baso % (Auto) Gran # Lymph # [place] # Eos # Baso # Sodium 141 Potassium 3.6 Chloride 102 Carbon Dioxide 30 Anion Gap 13 BUN 20 Creatinine 1.2 Est GFR ( Amer) > 60 Est GFR (Non-Af Amer) > 60 POC Glucose (mg/dL) 100 Random Glucose 94 Calcium 8.7 Total Bilirubin 0.9 AST 32 ALT 24 Alkaline Phosphatase 76 Total Protein 7.6 Albumin 3.8 Globulin 3.8 Albumin/Globulin Ratio 1.0 L Blood Type Confirm O NEGATIVE 04/26/17 04/26/17 04/26/17 06:30 08:00 11:12 WBC 8.5 RBC 3.72 Hgb 12.1 L Hct 36.1 L MCV 97.0 MCH 32.5 MCHC 33.5 RDW 13.4 Plt Count 276 MPV 9.4 Gran % 58.3 Lymph % (Auto) 30.9 [place] % (Auto) 7.9 H Eos % (Auto) 2.5 Baso % (Auto) 0.4 Gran # 4.93 Lymph # 2.6 Pendleton # 0.7 H Eos # 0.2 Baso # 0.03 Sodium Potassium Chloride Carbon Dioxide Anion Gap BUN Creatinine Est GFR ( Amer) Est GFR (Non-Af Amer) POC Glucose (mg/dL) 90 136 H Random Glucose Calcium Total Bilirubin AST ALT Alkaline Phosphatase Total Protein Albumin Globulin Albumin/Globulin Ratio Blood Type Confirm
[2017-04-26] MEDS ORDERED: Potassium Chloride 20 mEq ER Tab PO ONE (15:41)
--- NOTE | 2017-04-26 18:58 | US ---
HISTORY: Leg pain and swelling. Evaluate for DVT PHYSICIAN(S): Lukas Gramajo MD. TECHNIQUE: Duplex sonography and color-flow Doppler with graded compression were used to evaluate the deep venous systems of both lower extremities. The exam is limited by edema. The tibial veins are not adequately seen. FINDINGS: The visualized deep venous systems of both lower extremities are sonographically normal and compressible. Normal wave forms and augmentation are seen. There is no sonographic evidence for deep venous thrombosis in the visualized segments of both lower extremities. IMPRESSION: No sonographic evidence for deep venous thrombosis in the visualized segments of both lower extremities. Limited study.
--- NOTE | 2017-04-26 19:46 | CARD ---
APPROVED REPORT EXAM: Two-dimensional and M-mode echocardiogram with Doppler and color Doppler. INDICATION CODE STROKE 2D DIMENSIONS Left Atrium (2D)5.3 (1.6-4.0cm)IVSd1.4 (0.7-1.1cm) LVDd5.6 (3.9-5.9cm)PWd1.7 (0.7-1.1cm) LVDs4.2 (2.5-4.0cm)FS (%) 25.7 % LVEF (%)50.1 (>50%) M-Mode DIMENSIONS Aortic Root4.10 (2.2-3.7cm)Aortic Cusp Exc.1.80 (1.5-2.0cm) Aortic Valve AoV Peak Htqpmpro385.0cm/Luisa Peak GR.14mmHgAI P 1/2 [id number] Mitral Valve MV E Ujgdxemc968.0cm/sMV A Yluochsm26.5cm/sE/A ratio1.4 TDI Lateral E' Peak V6.53cm/sMedial E' Peak V7.12cm/sE/Lateral E'18.5 E/Medial E'17.0 Pulmonary Valve PV Peak Uazprdim05.3cm/sPV Peak Grad.1mmHg Tricuspid Valve TR Peak [id number]/sRAP [id number] Peak Gr.8mmHg [id number] LEFT VENTRICLE The left ventricle is normal size. There is mild to moderate concentric left ventricular hypertrophy. The systolic function is mildly impaired.EF-45-50% There is mild hypokinesis in the apical anterior wall. Transmitral Doppler flow pattern is Grade II-pseudonormal filling dynamics. No left ventricle thrombus noted on this study. There is no ventricular septal defect visualized. There is no left ventricular aneurysm. There is no mass noted in the left ventricle. RIGHT VENTRICLE The right ventricle is normal size. There is normal right ventricular wall thickness. The right ventricular systolic function is normal. ATRIA The left atrium size is normal. The right atrium size is normal. The interatrial septum is intact with no evidence for an atrial septal defect. AORTIC VALVE The aortic valve is calcified and displays decreased opening. There is mild to moderate aortic regurgitation. aortic Sclerosis Vs Mild As There is no aortic valvular vegetation. MITRAL VALVE The mitral valve is thickened but opens well. Mitral annular calcification is moderate. Mitral regurgitation is mild to moderate. There is no mitral valve stenosis. There is no evidence of mitral valve prolapse. TRICUSPID VALVE The tricuspid valve leaflets are thickened , but open well. There is mild tricuspid regurgitation.RVSP-18 mmof Hg There is no tricuspid valve stenosis. There is no tricuspid valve prolapse or vegetation. PULMONIC VALVE The pulmonic valve is not well visualized. GREAT VESSELS The aortic root is normal in size. The ascending aorta is normal in size. The pulmonary artery is normal. The IVC is normal in size and collapses >50% with inspiration. PERICARDIAL EFFUSION There is no pleural effusion. There is no pericardial effusion. <Conclusion> Normal chamber EF-45-50% There is mild to moderate aortic regurgitation. Mitral regurgitation is mild to moderate. There is mild tricuspid regurgitation.RVSP-18 mmof Hg There is no pericardial effusion. The IVC is normal in size and collapses >50% with inspiration. no Vegetation or thrombus noted.
--- NOTE | 2017-04-27 04:38 | CON ---
DATE: 04/26/2015 REASON FOR CONSULTATION: Hypertension, abnormal EKG, and recurrent TIA. HISTORY OF PRESENT ILLNESS: A 62-year-old morbidly obese male with past medical history significant for hypertension, noncompliance with medications, did not take the pills yesterday, labetalol 300 mg three times a day, went to work yesterday, felt not good. At 6 o'clock, the patient punched in the card, but later on, the patient feels weakness of the left upper extremity and slurring of speech, came to the emergency room. Since then, that happened until 10 o'clock three to four times, keeping on coming back and then got better, so the patient decided to come in here. After 10 o'clock when the patient was here, these symptoms completely resolved, though the patient did not take the blood pressure medications, and at one point, the blood pressure in the ER was elevated to 200/122. PAST MEDICAL HISTORY: Past history is significant for hypertension and hyperlipidemia. PAST SURGICAL HISTORY: Significant for appendectomy at the age of 11. FAMILY HISTORY: Mother has heart disease, details unknown. Father had hypertension, . 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 Denies any history of alcohol abuse, denies any history of substance abuse. ALLERGIES: ALLERGY TO *------*, HE GETS ANGIOEDEMA AND LEVAQUIN, GETS HIVES ALL OVER THE BODY. CURRENT MEDICATIONS: Taking labetalol 300 mg three times a day, aspirin, and torsemide. REVIEW OF SYSTEMS: As per HPI. PHYSICAL EXAMINATION: As follows: VITAL SIGNS: Temperature is afebrile, height of the patient is 6 feet 2 inches, weight of the patient is 320 pounds, body mass index 41.1 kg per meter square, heart rate 83, and blood pressure 210/111, now is 140/88. HEENT: MIKAELA. Extraocular muscles are intact. NECK: Supple. No carotid bruit. No thyromegaly. CHEST: Clear to auscultation. HEART: S1 and S2 regular. ABDOMEN: Soft. EXTREMITIES: Clubbing and cyanosis negative. LABORATORY DATA: Blood workup as follows: WBC 8.5, hemoglobin 12.0, hematocrit 36.1, and platelet count 276. Chemistry shows sodium 141, potassium 3.6, chloride 102, carbon dioxide of 30, anion gap of 13, BUN 20, and creatinine 1.2. Fasting lipid as of yesterday 10 p.m., triglyceride 225 to 251, cholesterol 240, and LDL 136. Troponin is negative, IMPRESSION: Uncontrolled hypertension, noncompliance with medications, morbid obesity, hyperlipidemia, and possible prediabetic. RECOMMENDATIONS: Aggressive control of cholesterol, compliance with the medication, echo to a systolic dysfunction. Consider a stress test because of multiple risk factor as an outpatient. Discuss in length with the patient. Try to goal the LDL less than 100 and aggressive control of blood pressure, goal is get 140/80 to 85. We will follow with you. We will do lipid profile. We will do the TSH. We will get hemoglobin A1c and echo. Further recommendations based on hospital course. Followup CPK and troponin. Thank you Dr. Wheat for providing the opportunity in taking care of the patient. Mojgan Dean MD
[2017-04-27 06:45] LABS: BASO # 0.03 K/mm3 (0.0-2.0); BASO % 0.4 % (0.0-3.0); EOS # 0.3 (0.0-0.7); EOS % 3.5 % (1.5-5.0); GRAN # 5.11 (1.4-6.5); HEMOGLOBIN 11.9 g/dL (14.0-18.0); LYMPH # 2.3 (1.2-3.4); MEAN CELL VOLUME 96.2 fl (80.0-105.0); MEAN CORPUSCULAR HEMOGLOBIN 32.5 pg (25.0-35.0); MEAN CORPUSCULAR HGB CONC 33.8 g/dl (31.0-37.0); MEAN PLATELET VOLUME 9.1 fl (7.0-11.0); MONO # 0.7 (0.1-0.6); MONO % 8.1 % (1.0-6.0); PLATELET COUNT 269 10^3/uL (120.0-450.0); RBC 3.66 10^6/uL (3.5-6.1); RED CELL DISTRIBUTION WIDTH 13.5 % (11.5-14.5); WHITE BLOOD COUNT 8.4 10^3/ul (4.5-11.0)
[2017-04-27 07:04] LABS: ALBUMIN 3.5 g/dL (3.0-4.8); ALT/SGPT 23 U/L (7-56); AST/SGOT 30 U/L (15-59); BLOOD UREA NITROGEN 22 mg/dL (7-21); CALCIUM 8.7 mg/dL (8.4-10.5); GFR AFRICAN-AMERICAN > 60; GFR NON-AFRICAN AMERICAN 51
[2017-04-27] MEDS ORDERED: Aminophylline 25 mg/ml Inj ONE (08:47)
[2017-04-27] MEDS ORDERED: Potassium Chloride 20 mEq ER Tab PO ONE (09:02)
--- NOTE | 2017-04-27 10:16 | US ---
PROCEDURE: Bilateral carotid artery duplex ultrasound HISTORY: Carotid stenosis PHYSICIAN(S): Lukas Gramajo MD. TECHNIQUE: Duplex sonography and color-flow Doppler were used to evaluate the carotid bifurcations and limited segments of the vertebral arteries bilaterally. FINDINGS: There is mild smooth heterogeneous plaque noted at the carotid bifurcations bilaterally. The peak systolic velocity in the proximal right internal carotid artery is 75 cm/sec. This corresponds to a 20 to 39% proximal right ICA stenosis. Normal systolic velocities are noted in the proximal right external carotid artery. There is antegrade flow in the right vertebral artery. The peak systolic velocity in the proximal left internal carotid artery is 53 cm/sec. This corresponds to a 20 to 39% proximal left ICA stenosis. Normal systolic velocities are noted in the proximal left external carotid artery. There is antegrade flow in the left vertebral artery. IMPRESSION: 1. Bilateral 20-39% proximal ICA stenoses. 2. Antegrade flow in both vertebral arteries.
--- NOTE | 2017-04-27 10:34 | MRI ---
PROCEDURE: MRI BRAIN WITHOUT CONTRAST HISTORY: r/o CVA COMPARISON: None. TECHNIQUE: Multiplanar, multisequence MR images of the brain were obtained without intravenous contrast enhancement. FINDINGS: HEMORRHAGE: None DWI: Small focal areas of restricted diffusion are seen in the right centrum semiovale image 23 series 3 and adjacent to the right lateral ventricle in the connelly radiata image 2. There is also an abnormal area of diffusion in the posterior putaminal image 17. Findings are consistent with acute or subacute infarcts. BRAIN PARENCHYMA: Severe extensive chronic microvascular changes are seen in the periventricular white matter and the marleni. Although the changes are nonspecific and could represent chronic demyelinating disease. It is more likely to represent microvascular ischemic disease. Clinical correlation is suggested. VENTRICLES: Unremarkable. No hydrocephalus. CRANIUM: Unremarkable. ORBITS: Grossly unremarkable. PARANASAL SINUSES/MASTOIDS: Clear VASCULAR SYSTEM: Skull base flow voids intact. OTHER FINDINGS: The report concurs with the preliminary [facility] report IMPRESSION: Severe chronic microvascular disease in the periventricular white matter and marleni. Several small areas of abnormal diffusion are seen in the right white matter and basal ganglia most likely representing acute or subacute infarcts. Demyelinating disease possible but less likely
--- NOTE | 2017-04-27 12:02 | US ---
PROCEDURE: Bilateral renal artery duplex ultrasound. CLINICAL HISTORY: Renal artery stenosis. Uncontrolled hypertension. Evaluate for renovascular hypertension. PHYSICIAN(S): Lukas Gramajo M.D. TECHNIQUE: Duplex sonography with color-flow Doppler was used to evaluate the visualized segments of the main renal arteries. The patient was evaluated in a fasting state. Imaging in a supine and decubitus position was performed. Limited evaluation of the arcuate waveforms and resistive indices were performed. FINDINGS: The overall quality of the study is adequate. The kidneys are normal in size, shape, and location. The right kidney measures 10.1cm in length and the left kidney measures 10.6cm in length. No solid renal masses, abnormal calcifications, or hydronephrosis is seen. The main right renal artery is fairly well visualized from the aorta to the hilum. The peak systolic velocity in the right main renal artery is 112 cm/sec. This is consistent with a 0 to 49% stenosis in the main right renal artery. The arcuate waveforms are normal. The resistive index is normal. The main left renal artery is visualized in segments from the aorta to the hilum.. The peak systolic velocity in the main left renal artery is 94cm/sec. This corresponds to a 0 to 49% stenosis in the main left renal artery. The arcuate waveforms and resistive indices are normal. IMPRESSION: 1. The main renal arteries are fairly well visualized, better on the right than the left. 2. No sonographically significant stenosis is identified. 3. The kidneys are normal and symmetric in size. There are no solid renal masses, abnormal calcifications or hydronephrosis noted.
--- NOTE | 2017-04-27 12:24 | CP.PCM.PN ---
Subjective - Date & Time of Evaluation Date of Evaluation: 04/27/17 Time of Evaluation: 12:21 - Subjective Subjective: Mr. Palacio was seen and examined today at bedside. He was in NAD. He had no new complaints and there were no events overnight. He said that he was unable to stay still and could not complete the MRA portion of the full MRI/MRA exam due to claustrophobia. I asked him if he would try again and we would give him medication to help him relax and he agreed. Objective - Vital Signs/Intake and Output Vital Signs (last 24 hours): Temp Pulse Resp BP Pulse Ox 97.7 F 70 20 167/84 H 98 04/27/17 11:45 04/27/17 11:45 04/27/17 11:45 04/27/17 11:45 04/27/17 00:01 Intake and Output: 04/27/17 04/27/17 06:59 18:59 Intake Total 0 Output Total 0 Balance 0 - Medications Medications: Current Medications Amlodipine Besylate (Norvasc) 10 mg PO DAILY [facility] Last Admin: 04/27/17 11:27 Dose: 10 mg Aspirin (Ecotrin) 81 mg PO DAILY [facility] Last Admin: 04/27/17 11:27 Dose: 81 mg Atorvastatin Calcium (Lipitor) 40 mg PO DIN [facility] Last Admin: 04/26/17 20:01 Dose: 40 mg Clopidogrel Bisulfate (Plavix) 75 mg PO DAILY [facility] Last Admin: 04/27/17 11:27 Dose: 75 mg Furosemide (Lasix) 40 mg IVP DAILY [facility] Last Admin: 04/27/17 11:23 Dose: 40 mg Hydralazine HCl (Apresoline) 10 mg PO QID PRN PRN Reason: for SBP>170&/or diasolic>100 Labetalol HCl (Trandate) 20 mg IV Q6H PRN PRN Reason: SBP > 200 Last Admin: 04/26/17 10:36 Dose: 20 mg Labetalol HCl (Trandate) 300 mg PO TID [facility] Last Admin: 04/27/17 11:25 Dose: 300 mg Pantoprazole Sodium (Protonix Inj) 40 mg IVP DAILY [facility] Last Admin: 04/27/17 11:25 Dose: 40 mg Spironolactone (Aldactone) 25 mg PO BID [facility] Last Admin: 04/27/17 11:28 Dose: 25 mg - Labs Labs: 04/27/17 05:45 04/27/17 05:45 PT 11.1 Seconds (9.9-11.8) 04/25/17 20:15 INR 1.03 (0.93-1.08) 04/25/17 20:15 APTT 31.4 Seconds (23.7-30.8) H 04/25/17 20:15 - Neurological Exam Additional comments: Neurologically unchanged compared with previous examination. Assessment and Plan - Assessment and Plan (Free Text) Assessment: Recent subacute ischemic strokes were noted in the right subcortical regions distally and in the basal ganglia. There is some concern for vessel to vessel emboi and the MRA of the head/neck is needed to evaluate. If he cannot tolerate the MRA, we may obtain a CTA of the head and neck after adequate hydration with NS at 100 mL/hr. I also recommend obtaining the echocardiogram with bubble study to rule out right to left shunt. Otherwise, continue current medications, PT/OT eval, DVT Px and conservative management.
[2017-04-27 12:42] LABS: URINE BILIRUBIN NEGATIVE (NEGATIVE); URINE BLOOD NEGATIVE (NEGATIVE); URINE GLUCOSE (UA) NEGATIVE (NEGATIVE); URINE LEUKOCYTE ESTERASE NEGATIVE Leu/uL (NEGATIVE); URINE NITRATE NEGATIVE (NEGATIVE); URINE PROTEIN 100 mg/dL (<30 mg/dL)
[2017-04-27 12:43] LABS: URINE APPEARANCE CLEAR (CLEAR); URINE COLOR LIGHT YELLOW (YELLOW)
[2017-04-27 12:47] LABS: URINE BACTERIA TRACE (NEG); URINE RBC 0 - 2 /hpf (0-2)
--- NOTE | 2017-04-27 13:34 | CP.PCM.PN ---
Subjective - Date & Time of Evaluation Date of Evaluation: 04/27/17 Time of Evaluation: 13:31 - Subjective Subjective: Follow up Nephrology Consultation: Assessment: Stable Acute Kidney Injury (N17.9) likely due to hemodyanmic injury by severe HTN and also NSAIDs HTN (I12.9) with emergency, TIA morbid obesity, chronic leg swelling (? lymphedema) and hyperlipidemia Hypokalemia CKD stage 2 Plan Had Stress test today Renal function has improved and now close to baseline Hypertension control with meds as ordered. Patient not on ACEI due to hx of allergic reaction (Angioedema). Increase Labetalol to 400 mg q 8 hr, May add hydralazine if needed. Aldactone once work up for hyperaldo is negative. Use of CCB such as norvasc limited by his edema. Monitor Input/Output, daily weights and renal function with basic metabolic panel Supplement KDUR he is on ASA and statins Check urine analysis, spot protein/creatinine and albumin/creatinine ratio Secondary HTN work up: renin/mercy, metanephrine, renal artery doppler (NEG) and TSH (normal). Pt needs exercise, weight loss and lifestyle modifications Dose meds/antibiotics for improved GFR. Avoid fleets enema/magnesium based laxatives. Avoid nephrotoxins/NSAIDs/ iodinated contrast (unless needed emergently) Glycemic control Further work up/management as per primary team Thanks for allowing me to participate in care of your patient. Will follow patient with you. Please call if any Qs. stable from renal perspective. Dr Patrick Barrera Office: [phone] Chief Complaint; None at this time Reason for consult: DARLENE and elevated BP HPI: Pt is a 62 y/o M with hx of hypertension ( since he was 14 years old), morbid obesity, chronic leg swelling (since teenage) and hyperlipidemia came with c/o intermittent and freqent episode of LUE weakness and slurrred speech for last 2 days. Now symptoms has resolved. but noted to have high BP and elevated cr hence renal consulted pt says he was told once that he has too much protein in urine otherwise he is not aware about kidney disease in past Denies chest pain, palpitation, shortness of breath, has chronic leg swelling Denies blood or bubbles in urine Denies OTC/herbal meds. Has been taking NSAIDs as Naproxen for last 2 weeks for back pain. No recent iodinated contrast exposure. No obvious episodes of low BP. he denies smoking, alcohol, drugs, tobacco, sudafed. ROS: Constitutional Symptoms: Denies fever. No chills. had been able to loose some weight Eyes: denies change in vision, denies watery eyes, denies double vision Ears/Nose/Mouth/Throat: Denies Abnormal Taste. No Bad breath no Bad Taste. Cardiovascular: No chest pain. There is no shortness of breath. No palpitations. Pulmonary: No shortness of breath no cough. Gastrointestinal: denies abdominal pain No nausea. No vomiting. Denies change in bowel habits. Denies Bleeding Genitourinary: No Change in force of strain when urinating. No increase in urinary frequency. No pain while urinating. Denies blood in urine. Neurological: Denies headaches. No dizziness. Denies loss of balance. Denies weakness, denies tingling/numbness now Dermatological: No Rash or Bruising or ulcers. Psychiatric: Denies Anxiety. No depression. Denies hallucinations. Rheumatological: No joint pain except Rt back pain. Denies Joint swelling but c/ o chronic leg swelling Endocrine: Denies tiredness/Fatigue denies Heat/Cold Intolerance. All other negative Physical Examination: General Appearance: Comfortable, in no acute respiratory distress, co-operative . morbid obese Vitals reviewed and noted as below Head; Atraumatic, normocephalic ENT: no ulcers no thrush. Tongue is midline. Oropharynx: no rash or ulcers. EYES: Pupils are equal, round and reactive to light accommodation. Eye muscles and extraocular movement intact. Sclera is anicteric. Neck; supple no lymphadenopathy, no thyromegaly or bruit Lungs: Normal respiratory rate/effort. Breath sounds bilateral equal and clear Heart: Normal rate. s1s2 normal. No rub or gallop. Extremities: 2+ non-pitting edema. No varicose veins Neurological: Patient is alert, awake and oriented to person, place and time. No focal deficit. Strength bilateral appropriate and equal Skin: Warm and dry. Normal turgor. No rash. Palpitation: Normal elasticity for age Abdomen: Abdomen is soft. Bowel sounds +. There is no abdominal tenderness, no guarding/rigidity no organomegaly Psych: normal insight and normal affect/mood MSK: no joint tenderness or swelling. Digits and nails normal, no deformity : kidney or bladder not palpable Labs/imaging/EKG reviewed. Past medical history, past surgical history, family history, social history, allergy reviewed and noted as below Family hx: no hx of CKD. Rest non-contributory except mother had hx of HTN Work up UA: 100 protein no blood GINA neg on doppler Objective - Vital Signs/Intake and Output Vital Signs (last 24 hours): Temp Pulse Resp BP Pulse Ox 97.7 F 70 20 167/84 H 98 04/27/17 11:45 04/27/17 11:45 04/27/17 11:45 04/27/17 11:45 04/27/17 00:01 Intake and Output: 04/27/17 04/27/17 06:59 18:59 Intake Total 0 Output Total 0 Balance 0 - Medications Medications: Current Medications Amlodipine Besylate (Norvasc) 10 mg PO DAILY [facility] Last Admin: 04/27/17 11:27 Dose: 10 mg Aspirin (Ecotrin) 81 mg PO DAILY [facility] Last Admin: 04/27/17 11:27 Dose: 81 mg Atorvastatin Calcium (Lipitor) 40 mg PO DIN [facility] Last Admin: 04/26/17 20:01 Dose: 40 mg Clopidogrel Bisulfate (Plavix) 75 mg PO DAILY [facility] Last Admin: 04/27/17 11:27 Dose: 75 mg Furosemide (Lasix) 40 mg IVP DAILY [facility] Last Admin: 04/27/17 11:23 Dose: 40 mg Hydralazine HCl (Apresoline) 10 mg PO QID PRN PRN Reason: for SBP>170&/or diasolic>100 Labetalol HCl (Trandate) 20 mg IV Q6H PRN PRN Reason: SBP > 200 Last Admin: 04/26/17 10:36 Dose: 20 mg Labetalol HCl (Trandate) 300 mg PO TID [facility] Last Admin: 04/27/17 11:25 Dose: 300 mg Pantoprazole Sodium (Protonix Inj) 40 mg IVP DAILY [facility] Last Admin: 04/27/17 11:25 Dose: 40 mg Spironolactone (Aldactone) 25 mg PO BID [facility] Last Admin: 04/27/17 11:28 Dose: 25 mg - Labs Labs: 04/27/17 05:45 08/15/17 05:45 PT 11.1 Seconds (9.9-11.8) 04/25/17 20:15 INR 1.03 (0.93-1.08) 04/25/17 20:15 APTT 31.4 Seconds (23.7-30.8) H 04/25/17 20:15
--- NOTE | 2017-04-27 14:02 | CP.PCM.PN ---
<TABATHA SCHULTZ - Last Filed: 04/27/17 13:58> Subjective - Date & Time of Evaluation Date of Evaluation: 04/27/17 Time of Evaluation: 14:00 - Subjective Subjective: Medicine Progress note: Pt seen and examined at bedside. Pt denied any acute overnight events. Pt unable to obtain MRA due to panic attack. Pt is OOB and ambulating. Pt denied CP , SOB, n/v/d, chills, fevers, abdominal pain, changes in BM/urination, or vertigo. Objective - Vital Signs/Intake and Output Vital Signs (last 24 hours): Temp Pulse Resp BP Pulse Ox 97.7 F 70 20 167/84 H 98 04/27/17 11:45 04/27/17 11:45 04/27/17 11:45 04/27/17 11:45 04/27/17 00:01 Intake and Output: 04/27/17 04/27/17 06:59 18:59 Intake Total 0 Output Total 0 Balance 0 - Medications Medications: Current Medications Aspirin (Ecotrin) 81 mg PO DAILY [facility] Last Admin: 04/27/17 11:27 Dose: 81 mg Atorvastatin Calcium (Lipitor) 40 mg PO DIN [facility] Last Admin: 04/26/17 20:01 Dose: 40 mg Clopidogrel Bisulfate (Plavix) 75 mg PO DAILY [facility] Last Admin: 04/27/17 11:27 Dose: 75 mg Furosemide (Lasix) 40 mg IVP DAILY [facility] Last Admin: 04/27/17 11:23 Dose: 40 mg Hydralazine HCl (Apresoline) 10 mg PO QID PRN PRN Reason: for SBP>170&/or diasolic>100 Labetalol HCl (Trandate) 20 mg IV Q6H PRN PRN Reason: SBP > 200 Last Admin: 04/26/17 10:36 Dose: 20 mg Labetalol HCl (Trandate) 400 mg PO TID [facility] Pantoprazole Sodium (Protonix Inj) 40 mg IVP DAILY [facility] Last Admin: 04/27/17 11:25 Dose: 40 mg Spironolactone (Aldactone) 25 mg PO BID [facility] Last Admin: 04/27/17 11:28 Dose: 25 mg - Labs Labs: 04/27/17 05:45 04/27/17 05:45 PT 11.1 Seconds (9.9-11.8) 04/25/17 20:15 INR 1.03 (0.93-1.08) 04/25/17 20:15 APTT 31.4 Seconds (23.7-30.8) H 04/25/17 20:15 - Constitutional Appears: No Acute Distress - Head Exam Head Exam: ATRAUMATIC, NORMOCEPHALIC - Eye Exam Eye Exam: EOMI, PERRL - ENT Exam ENT Exam: Mucous Membranes Moist - Neck Exam Neck Exam: Full ROM. absent: Lymphadenopathy, Tenderness, Thyromegaly Additional comments: no crarotid bruits - Respiratory Exam Respiratory Exam: Clear to Ausculation Bilateral. absent: Rales, Rhonchi, Wheezes - Cardiovascular Exam Cardiovascular Exam: RRR. absent: Gallop, Rubs, Murmur - GI/Abdominal Exam GI & Abdominal Exam: Soft. absent: Distended, Guarding, Tenderness, Rebound - Extremities Exam Extremities Exam: Full ROM, Pedal Edema. absent: Tenderness - Neurological Exam Neurological Exam: Alert, Awake, Oriented x3 - Psychiatric Exam Psychiatric exam: Normal Affect, Normal Mood - Skin Skin Exam: Dry, Intact, Normal Color, Warm Assessment and Plan - Assessment and Plan (Free Text) Assessment: 62 yo AA male with PMH of HTN, HLD admitted for evaluation and treatment for transient left sided weakness and slurred speech. Plan: 1) Subacute ischemic stroke - Neuro consulted, recs MRA of head/neck to r/o vessel to vessel emboli and echo with bubble study to rule out PFO - Cardio consulted, recs cholesterol control, stress test - F/U bubble study - F/U stress test - F/U MRA head and neck - MRI shows recent subacute ischemic strokes in right subcoritccal region distally and in basal ganglia - CT head demonstrates patchy decreased attenuation in the periventricular white matter suggesting microvascular disease; no bleed. - EKG demonstrates NSR, possible left atrial enlargement, prolonged QT interval - Swallow study normal - Carotid US shows b/l 20-39% proximal ICA stenoses - Echo shows 45-50% EF - Neurochecks q4h - Cont Plavix, Aspirin - PT consulted, clear from their standpoint 2) Hypertension - Secondary HTN workup per nephro - f/u renin/mercy, metanephrine - Labetalol 400 mg PO TID - Labetalol IV for SBP >200 - Lasix 40 mg IVP - HHD, 2 g Na - Cont to monitor BP - Educate pt on importance of medication compliance and BP control - Diet Education 3) DARLENE most likely secondary to hypertensive emergency - Improved renal function continue to monitor kidney function - Nephrology consulted, recs avoid ACEI, increase labetalol, add hydralazine if needed - F/u aldosterone study, possible aldactone - D/c CCB due to edema 4) Peripheral Edema - Venous doppler shows no DVT - Lasix - Elevate affected extremity - Compression stockings 5) Dyslipidemia - Cont Lipitor - Low cholesterol diet, HHD, low NA 6) Hypokalemia, resolved - Cont to monitor electrolytes - Nephrology consulted 7) GI/DVT PPx - Protonix - SCDs Pt seen and discussed in detail with Dr. Wheat. <Qasim Wheat - Last Filed: 04/27/17 17:08> Objective - Vital Signs/Intake and Output Vital Signs (last 24 hours): Temp Pulse Resp BP Pulse Ox 97.7 F 70 20 167/84 H 98 04/27/17 11:45 04/27/17 11:45 04/27/17 11:45 04/27/17 11:45 04/27/17 00:01 Intake and Output: 04/27/17 04/27/17 06:59 18:59 Intake Total 0 540 Output Total 0 325 Balance 0 215 - Medications Medications: Current Medications Aspirin (Ecotrin) 81 mg PO DAILY [facility] Last Admin: 04/27/17 11:27 Dose: 81 mg Atorvastatin Calcium (Lipitor) 40 mg PO DIN [facility] Last Admin: 04/26/17 20:01 Dose: 40 mg Clopidogrel Bisulfate (Plavix) 75 mg PO DAILY [facility] Last Admin: 04/27/17 11:27 Dose: 75 mg Enoxaparin Sodium (Lovenox) 40 mg SC DAILY [facility] PRN Reason: Protocol Furosemide (Lasix) 40 mg IVP DAILY [facility] Last Admin: 04/27/17 11:23 Dose: 40 mg Hydralazine HCl (Apresoline) 10 mg PO QID PRN PRN Reason: for SBP>170&/or diasolic>100 Labetalol HCl (Trandate) 20 mg IV Q6H PRN PRN Reason: SBP > 200 Last Admin: 04/26/17 10:36 Dose: 20 mg Labetalol HCl (Trandate) 400 mg PO TID [facility] Last Admin: 04/27/17 15:01 Dose: Not Given Pantoprazole Sodium (Protonix Inj) 40 mg IVP DAILY [facility] Last Admin: 04/27/17 11:25 Dose: 40 mg Spironolactone (Aldactone) 25 mg PO BID [facility] Last Admin: 04/27/17 11:28 Dose: 25 mg - Labs Labs: 04/27/17 05:45 04/27/17 05:45 PT 11.1 Seconds (9.9-11.8) 04/25/17 20:15 INR 1.03 (0.93-1.08) 04/25/17 20:15 APTT 31.4 Seconds (23.7-30.8) H 04/25/17 20:15 Attending/Attestation - Attestation I have personally seen and examined this patient.: Yes I have fully participated in the care of the patient.: Yes I have reviewed all pertinent clinical information, including history, physical exam and plan: Yes Notes (Text): 04/27/17 17:06 attending note; Patient seen and examined with resident. Patient is a 62-year-old male with a past medical history of hypertension, questionable TIA, allergic reaction to ASIA inhibitor is admitted with intermittent left-sided weakness and slurred speech.CT head showed chronic microvascular changes. MRI showed multiple subacute strokes. case discussed with neurologist in detail. MRA of the head and neck ordered. Echocardiogram with bubble study ordered. Abnormal EKG; secondary to uncontrolled hypertension. Cardiology evaluation appreciated. Stress test completed. Acute renal failure; resolving.possibly secondary to fluctuation in BP. Patient has uncontrolled blood pressure for the past 2 years. Medication compliance/dietary education insisted. physical therapy evaluation appreciated. No residual weakness noted. Upon discharge the patient will follow up with PMD Dr. Corwin Miller.
--- NOTE | 2017-04-27 14:40 | PN ---
DATE: 04/27/2017 REASON FOR FOLLOWUP: Hypertension, abnormal EKG, rule out TIA. SUBJECTIVE: The patient denies any chest pain, shortness of breath, or any palpitations. Denies any a weakness of the extremity. OBJECTIVE: GENERAL: The patient sitting in chair on way to stress lab, non-invasive lab for a stress test. VITAL SIGNS: As follow, temperature afebrile, heart rate 77, blood pressure 152/88. HEENT: PERRLA. Extraocular movements intact. NECK: Supple. No carotid bruits or thyromegaly. CHEST: Clear to auscultation. HEART: S1 and S2 regular. ABDOMEN: Soft. EXTREMITIES: Clubbing and cyanosis negative. LABORATORY DATA: Blood workup as follows: WBC 8.5, hemoglobin 11.9, hematocrit 35.2, platelet count 269. Chemistry shows sodium 138, potassium 3.7, chloride 103, carbon dioxide 26, anion gap of 30, BUN 22, creatinine 1.4. Troponin remains negative. IMPRESSION: A 62-year-old obese male with a past medical history significant for hypertension, noncompliance with medication. Admitted with three episodes of weakness of extremities, slurring of speech which completely resolved; possible hypertensive crisis, admitting blood pressure was 206/122 secondary to noncompliance. completely resolved. CAT scan was initially negative. MRI done, official result pending. The patient also complained of a chest pain because of multiple risk factor for coronary artery disease, suggested a stress test today. His lipid profile yesterday shows triglyceride 251, cholesterol 240, LDL 136 and HDL 46 and TSH 1.2. Hemoglobin A1c 5.3. Echo done yesterday revealed normal chamber size, ejection fraction 45% to 50%, mild to moderate aortic regurgitation, mild to moderate mitral regurgitation, mild tricuspid regurgitation and systolic pressure 18. RECOMMENDATION: We will do a stress test to rule out any ischemia or ischemic cardiomyopathy because of multiple risk factor. In the interim, continue baby aspirin as aggressive control of blood pressure. The patient is not in Jadiel inhibitors because he gets angioedema. Continue gentle diuretics. Continue hydralazine p.r.n. and continue labetalol which he use at home 300 mg p.o. t.i.d. Continue atorvastatin 40 mg daily. We will add Norvasc 10 mg on the top of this and monitor the blood pressure with holding parameter stress test today. Keep n.p.o for stress test today. We will supplement potassium as well. Thank you Dr. Wheat for providing us the opportunity in taking care of patient, Hakeem Rojas. Mojgan Dean MD
--- NOTE | 2017-04-27 16:10 | CARD ---
APPROVED REPORT Protocol: LEXISCAN Test Type: Lexiscan Sestamibi Stress Test Attending Physician: Dr. Mojgan Dean Referring Physician: Dr. Balbina Ulrich Test Indications: Chest Pain Height:6 ft 2 in Weight:320lbs Medications: Aspirin,Lipitor,Plavix,Lasix, Apresoline,Trandate, Protonix, Aldactone Medical History: 62 y/o male. Hx of hypertension,hyperlipidemia, TIA. Target HR: 156 bpm Resting ECG: NSR, nLVH,T inversion in II,III, AVf, and V4-6 Resting Heart Rate: 70 bpm Resting Blood Pressure: 166/100mmHg Submaximum (85%): 133 bpm PROCEDURE Pharmacologic stress testing was performed using 0.4mg per 5ml of regadenoson given intravenously over 7-10 seconds. Reversal agent aminophyline 100 mg, given intravenously for Dyspnea. POST EXERCISE Reason for Termination: Protocol completed Target HR: No Max HR: 86 bpm 55% of Maximum Predicted HR: 156 bpm Exercise duration: 01:24 min:sec, 0 Stage Exercise capacity: 1.0METs Max Blood Pressure: 166/100mmHg Blood Pressure response to exercise: normal resting BP - appropriate response Heart Rate response to exercise: appropriate Chest Pain: No, none Angina index: 0 Arrhythmia: No, none ST Change: No, none from base line Deviation: 0 mm INTERPRETATION Stress EKG Conclusion: Negative IV Lexiscan for ischemia and for chest pain, Nuclear scan to follow. Signed by Mojgan Dean Electronically Approved: 04/27/2017 10:10:32 EXAM: Myocardial Perfusion REST/STRESS Stress Test Type: Pharmacologic Imaging Protocol Rest Spect myocardial perfusion imaging was performed in supine position 60 minutes following the injection of 10.9 mCi of Tc-99 Myoview. At peak stress, the patient was injected intravenously with 30.8mCi of Tc-99 tetrofosmin after an infusion time of 0 minutes and 10 seconds. Gated Stress Spect was performed 60 minutes after intravenous Tc-99 Myoview injection. The images were gated to evaluate regional wall motion and calculate ventricular ejection fraction.Images were reconstructed using backfilter projection method in short horizontal and verticle long axis. Spect slices were generated. LV Perfusion The quality of the study is good. The left ventricle is moderately enlarged in size with thickened myocardium. The right ventricle is unremarkable. The lung uptake is bordelrine increased. The distribution of tracer reveals mildly decreased uptake in the anterior wall on the stress study. The remainder of the LV myocardium is unremarkable. The rest myocardial perfusion study shows no significant change. Wall Motion Wall motion study shows diffuse hypokinesis of the left ventricle. LVEF = 40%. Conclusion 1. Abnormal SPECT myocardial perfusion study. 2. Fixed, anterior defect is most likely due to prominent pectoral soft tissue/ mlae breast attenuation 3. Mild to moderate LV dysfunction with diffuse hypokinesis. 4. The findings are suggestive of cardiomyopathy.
[2017-04-27] MEDS: Enoxaparin 40 mg Syringe SC SCH (18:29)
--- NOTE | 2017-04-27 19:04 | MRI ---
PROCEDURE: Magnetic Resonance Angiography Brain HISTORY: Stroke COMPARISON: None available. TECHNIQUE: 3D time of flight MR angiography of the intracranial arteries was performed. Rotating maximum intensity projection images were generated. FINDINGS: INTERNAL CEREBRAL ARTERIES: Normal in caliber. The skull base, petrous, cavernous and supraclinoid segments are bilaterally widely patient. ANTERIOR CEREBRAL ARTERIES: Normal in caliber. A1 and A2 segments are widely patent. The right A1 segment is hypoplastic, an anatomic variant. Smaller distal branches unremarkable, as visualized. MIDDLE CEREBRAL ARTERIES: Normal in caliber. M1 and M2 segments are widely patent. Perisylvian branches grossly symmetric. POSTERIOR CIRCULATION: Basilar Artery: Hypoplastic basilar artery. There is 2.0 mm dilatation at the tip of the basilar artery on the left. Distal Vertebral Arteries: The right vertebral artery is dominant an anatomic variant. The left vertebral artery is hypoplastic and terminates in PICA. Posterior Cerebral Arteries: There is origin of bilateral posterior cerebral artery is. Posterior Inferior Cerebellar Arteries: Normal right posterior inferior cerebellar artery. The left vertebral artery terminates in plica. ANEURYSM/ VASCULAR MALFORMATIONS: None. OTHER FINDINGS: None. IMPRESSION: 1. 2 mm dilatation of the tip of the basilar artery on the left which could represent a small saccular aneurysm. 2. origin of bilateral posterior cerebral arteries, left vertebral artery terminates in PICA and hypoplastic right A1 segment, anatomic variants.
--- NOTE | 2017-04-27 19:08 | MRI ---
PROCEDURE: MR Angiography of the neck without contrast HISTORY: stroke COMPARISON: Carotid ultrasound from 04/26/2017 TECHNIQUE: 3D [id number] angiography of the neck was performed. Rotating maximum intensity projection images of the cervical carotid and vertebral arteries were generated. The origins of the common carotid arteries were not visualized, which is a limitation inherent to the non-contrast time of flight technique. FINDINGS: RIGHT CAROTID ARTERIES: Common Carotid Artery: Normal. Carotid Bifurcation: Normal. Internal Carotid Artery:Normal. External Carotid Artery (proximal branches): Normal. LEFT CAROTID ARTERIES: Common Carotid Artery: Normal. Carotid Bifurcation: Normal. Internal Carotid Artery:Normal. External Carotid Artery (proximal branches): Normal. VERTEBRAL ARTERIES: Right Vertebral Artery: Normal. Left Vertebral Artery: Hypoplastic, an anatomic variant. OTHER FINDINGS: None. IMPRESSION: No evidence of hemodynamically significant stenosis.
[2017-04-28] MEDS ORDERED: Pantoprazole 40 mg EC Tab PO SCH (06:00)
[2017-04-28 07:10] VITALS: O2SAT 99
[2017-04-28 08:14] LABS: BASO # 0.02 K/mm3 (0.0-2.0); BASO % 0.2 % (0.0-3.0); EOS # 0.3 (0.0-0.7); EOS % 3.6 % (1.5-5.0); GRAN # 5.17 (1.4-6.5); GRAN % 61.3 % (50.0-68.0); HEMOGLOBIN 12.1 g/dL (14.0-18.0); LYMPH # 2.2 (1.2-3.4); LYMPH % 26.5 % (22.0-35.0); MEAN CELL VOLUME 97.3 fl (80.0-105.0); MEAN CORPUSCULAR HEMOGLOBIN 32.5 pg (25.0-35.0); MEAN CORPUSCULAR HGB CONC 33.4 g/dl (31.0-37.0); MEAN PLATELET VOLUME 9.4 fl (7.0-11.0); MONO # 0.7 (0.1-0.6); MONO % 8.4 % (1.0-6.0); PLATELET COUNT 281 10^3/uL (120.0-450.0); RBC 3.72 10^6/uL (3.5-6.1); RED CELL DISTRIBUTION WIDTH 13.5 % (11.5-14.5); WHITE BLOOD COUNT 8.4 10^3/ul (4.5-11.0)
[2017-04-28 08:32] LABS: ALBUMIN 3.7 g/dL (3.0-4.8); CALCIUM 8.9 mg/dL (8.4-10.5)
[2017-04-28] MEDS: Enoxaparin 40 mg Syringe SC SCH (10:10)
[2017-04-28 11:20] LABS: URINE BILIRUBIN NEGATIVE (NEGATIVE); URINE BLOOD NEGATIVE (NEGATIVE); URINE GLUCOSE (UA) NEGATIVE (NEGATIVE); URINE LEUKOCYTE ESTERASE TRACE Leu/uL (NEGATIVE); URINE NITRATE NEGATIVE (NEGATIVE); URINE PROTEIN NEGATIVE mg/dL (<30 mg/dL); URINE UROBILINOGEN 0.2 E.U./dL (<1 E.U./dL)
[2017-04-28 11:23] LABS: URINE APPEARANCE CLEAR (CLEAR); URINE COLOR LIGHT YELLOW (YELLOW)
[2017-04-28 11:31] LABS: URINE BACTERIA NEG (NEG); URINE EPITHELIAL CELLS 0 - 2 /hpf (0-5); URINE RBC NEGATIVE /hpf (0-2); URINE WBC 0 - 2 /hpf (0-6)
--- NOTE | 2017-04-28 11:33 | PN ---
DATE: 04/28/2017 REASON FOR CONSULTATION: Hypertension, abnormal EKG, rule out underlying coronary artery disease. SUBJECTIVE: The patient is lying flat in the bed. Not in apparent distress. Denies any chest pain, shortness of breath, any palpitation. PHYSICAL EXAMINATION: GENERAL: Lying flat in the bed, not in apparent distress. VITAL SIGNS: Temperature afebrile, heart rate 62, blood pressure 127/74. HEENT: PERRLA. Intact. NECK: Supple. No carotid bruit or thyromegaly. CHEST: Clear to auscultation. HEART: S1 and S2 regular. ABDOMEN: Soft. EXTREMITIES: Clubbing and cyanosis negative. LABORATORY DATA: Blood workup as follows. WBC 8.5, hemoglobin 12, hematocrit 36.2, platelet count 281. Chemistry shows sodium 141, potassium 4.4, chloride 104, carbon dioxide 28, anion gap of 13, BUN 19, creatinine 1.5. MRI of the brain showed severe microvascular disease in periventricular white matter and marleni, several small areas of abnormal diffusion seen in the right white matter basal ganglia most likely representing acute and subacute infarct. The patient had a stress test done yesterday, Lexiscan does show fixed defect noted with ischemia, ejection fraction 40%. IMPRESSION: A 62-year-old -[place] male with past medical history of hypertension, noncompliance with the medication, admitted with three episodes of weakness of extremities and slurring of speech which completely resolved by the time the patient got admitted. Admitting blood pressure was 206/122, secondary to noncompliance with the medication. CAT scan initially was negative. MRI official result pending, but shows a possible infarct. Stress test was abnormal. Echo done yesterday revealed normal chambers, ejection fraction 45% to 50%, [id number] aortic regurgitation, [id number] mitral regurgitation, mild tricuspid regurgitation, and right ventricular systolic pressure of 18. His stress test was negative for ischemia, decreased left ventricular function. Possibly, this decreased left ventricular function secondary to nonischemic cardiomyopathy, secondary to hypertensive heart disease and noncompliance. RECOMMENDATIONS: Emphasis made to the patient on compliance with medications, emphasis on weight reduction and lifestyle modification, risk factor for coronary artery disease. Continue baby aspirin everyday. Continue labetalol 400 mg increased to 3 times a day and continue atorvastatin 40 mg daily. I added spironolactone as well. Renal insufficiency secondary to hypertension. Calculated GFR is 50%. Chronic CKD, needs to be followed up closely. Also emphasis made to the patient that he needs very aggressive control of blood pressure. Otherwise, the patient will end up in end-organ damages. He is already showing the sign of renal insufficiency and cardiomyopathy, so high risk for end-organ damage. Lengthy discussion done with the patient and explained to the patient. The patient also started developing congestive heart failure secondary to hypertensive heart disease as well as end-stage renal disease. So, very important to be compliant with medication, low-salt diet, and modification lifestyle. We will DC telemetry. Follow up neurologist, and if the patient is cleared from neurology, the patient can be discharged home, cleared from cardiology point of view. Mojgan Dean MD
--- NOTE | 2017-04-28 12:21 | CP.PCM.PN ---
Subjective - Date & Time of Evaluation Date of Evaluation: 04/28/17 Time of Evaluation: 12:19 - Subjective Subjective: Follow up Nephrology Consultation: Assessment: Stable Acute Kidney Injury (N17.9) likely due to hemodyanmic injury by severe HTN and also NSAIDs HTN (I12.9) with emergency, TIA morbid obesity, chronic leg swelling (? lymphedema) and hyperlipidemia Hypokalemia CKD stage 2 with ? proteinuria Plan Hypertension control with meds as ordered. Patient not on ACEI due to hx of allergic reaction (Angioedema). Increased Labetalol to 400 mg q 8 hr, May add hydralazine if needed. Aldactone once work up for hyperaldo is negative. Use of CCB such as norvasc limited by his edema. Monitor Input/Output, daily weights and renal function with basic metabolic panel Supplement KDUR as needed he is on ASA and statins Check urine analysis, spot protein/creatinine and albumin/creatinine ratio Secondary HTN work up: renin/mercy, metanephrine, renal artery doppler (NEG) and TSH (normal). Pt needs exercise, weight loss and lifestyle modifications Dose meds/antibiotics for improved GFR. Avoid fleets enema/magnesium based laxatives. Avoid nephrotoxins/NSAIDs/ iodinated contrast (unless needed emergently) Glycemic control Further work up/management as per primary team Thanks for allowing me to participate in care of your patient. Will follow patient with you. Please call if any Qs. stable for d/c from renal perspective. Dr Patrick Barrera Office: [phone] Chief Complaint; None at this time Reason for consult: DARLENE and elevated BP HPI: Pt is a 62 y/o M with hx of hypertension ( since he was 14 years old), morbid obesity, chronic leg swelling (since teenage) and hyperlipidemia came with c/o intermittent and freqent episode of LUE weakness and slurrred speech for last 2 days. Now symptoms has resolved. but noted to have high BP and elevated cr hence renal consulted pt says he was told once that he has too much protein in urine otherwise he is not aware about kidney disease in past Denies chest pain, palpitation, shortness of breath, has chronic leg swelling Denies blood or bubbles in urine Denies OTC/herbal meds. Has been taking NSAIDs as Naproxen for last 2 weeks for back pain. No recent iodinated contrast exposure. No obvious episodes of low BP. he denies smoking, alcohol, drugs, tobacco, sudafed. ROS: Constitutional Symptoms: Denies fever. No chills. had been able to loose some weight Eyes: denies change in vision, denies watery eyes, denies double vision Ears/Nose/Mouth/Throat: Denies Abnormal Taste. No Bad breath no Bad Taste. Cardiovascular: No chest pain. There is no shortness of breath. No palpitations. Pulmonary: No shortness of breath no cough. Gastrointestinal: denies abdominal pain No nausea. No vomiting. Denies change in bowel habits. Denies Bleeding Genitourinary: No Change in force of strain when urinating. No increase in urinary frequency. No pain while urinating. Denies blood in urine. Neurological: Denies headaches. No dizziness. Denies loss of balance. Denies weakness, denies tingling/numbness now Dermatological: No Rash or Bruising or ulcers. Psychiatric: Denies Anxiety. No depression. Denies hallucinations. Rheumatological: No joint pain except Rt back pain. Denies Joint swelling but c/ o chronic leg swelling Endocrine: Denies tiredness/Fatigue denies Heat/Cold Intolerance. All other negative Physical Examination: General Appearance: Comfortable, in no acute respiratory distress, co-operative . morbid obese Vitals reviewed and noted as below Head; Atraumatic, normocephalic ENT: no ulcers no thrush. Tongue is midline. Oropharynx: no rash or ulcers. EYES: Pupils are equal, round and reactive to light accommodation. Eye muscles and extraocular movement intact. Sclera is anicteric. Neck; supple no lymphadenopathy, no thyromegaly or bruit Lungs: Normal respiratory rate/effort. Breath sounds bilateral equal and clear Heart: Normal rate. s1s2 normal. No rub or gallop. Extremities: 2+ non-pitting edema. No varicose veins Neurological: Patient is alert, awake and oriented to person, place and time. No focal deficit. Strength bilateral appropriate and equal Skin: Warm and dry. Normal turgor. No rash. Palpitation: Normal elasticity for age Abdomen: Abdomen is soft. Bowel sounds +. There is no abdominal tenderness, no guarding/rigidity no organomegaly Psych: normal insight and normal affect/mood MSK: no joint tenderness or swelling. Digits and nails normal, no deformity : kidney or bladder not palpable Labs/imaging/EKG reviewed. Past medical history, past surgical history, family history, social history, allergy reviewed and noted as below Family hx: no hx of CKD. Rest non-contributory except mother had hx of HTN Work up UA: 100 protein no blood GINA neg on doppler Stress test"; LVEF 40% Objective - Vital Signs/Intake and Output Vital Signs (last 24 hours): Temp Pulse Resp BP Pulse Ox 18 F L 64 18 163/92 H 99 04/28/17 07:04 04/28/17 10:11 04/28/17 07:04 04/28/17 10:11 04/28/17 07:04 Intake and Output: 04/28/17 04/28/17 06:59 18:59 Intake Total 60 Output Total 300 Balance -240 - Medications Medications: Current Medications Aspirin (Ecotrin) 81 mg PO DAILY [facility] Last Admin: 04/28/17 10:09 Dose: 81 mg Atorvastatin Calcium (Lipitor) 40 mg PO DIN [facility] Last Admin: 04/27/17 17:17 Dose: 40 mg Clopidogrel Bisulfate (Plavix) 75 mg PO DAILY [facility] Last Admin: 04/28/17 10:09 Dose: 75 mg Enoxaparin Sodium (Lovenox) 40 mg SC DAILY [facility] PRN Reason: Protocol Last Admin: 04/28/17 10:10 Dose: 40 mg Furosemide (Lasix) 40 mg IVP DAILY [facility] Last Admin: 04/28/17 10:08 Dose: 40 mg Hydralazine HCl (Apresoline) 10 mg PO QID PRN PRN Reason: for SBP>170&/or diasolic>100 Labetalol HCl (Trandate) 20 mg IV Q6H PRN PRN Reason: SBP > 200 Last Admin: 04/26/17 10:36 Dose: 20 mg Labetalol HCl (Trandate) 400 mg PO TID [facility] Last Admin: 04/28/17 10:11 Dose: 400 mg Pantoprazole Sodium (Protonix Ec Tab) 40 mg PO 0600 [facility] Last Admin: 04/28/17 06:34 Dose: 40 mg Spironolactone (Aldactone) 25 mg PO BID [facility] Last Admin: 04/28/17 10:12 Dose: 25 mg - Labs Labs: 04/28/17 07:30 04/28/17 07:30 PT 11.1 Seconds (9.9-11.8) 04/25/17 20:15 INR 1.03 (0.93-1.08) 04/25/17 20:15 APTT 31.4 Seconds (23.7-30.8) H 04/25/17 20:15
[2017-04-28 12:33] VITALS: RESP 20
--- NOTE | 2017-04-28 13:26 | CP.PCM.PN ---
Subjective - Date & Time of Evaluation Date of Evaluation: 04/28/17 Time of Evaluation: 13:21 - Subjective Subjective: Mr. Palacio was seen and examined today at bedside. He was found in NAD. There were no acute events overnight. I discussed the findings of the MRA head/neck with him and let him know that there were no findings of stenotic vessels that could explain his infarcts. His strokes were likely hypertension related small vessel disease. Objective - Vital Signs/Intake and Output Vital Signs (last 24 hours): Temp Pulse Resp BP Pulse Ox 98.3 F 64 20 144/87 99 04/28/17 12:00 04/28/17 13:17 04/28/17 12:00 04/28/17 13:17 04/28/17 07:04 Intake and Output: 04/28/17 04/28/17 06:59 18:59 Intake Total 60 Output Total 300 Balance -240 - Medications Medications: Current Medications Aspirin (Ecotrin) 81 mg PO DAILY [facility] Last Admin: 04/28/17 10:09 Dose: 81 mg Atorvastatin Calcium (Lipitor) 40 mg PO DIN [facility] Last Admin: 04/27/17 17:17 Dose: 40 mg Clopidogrel Bisulfate (Plavix) 75 mg PO DAILY [facility] Last Admin: 04/28/17 10:09 Dose: 75 mg Enoxaparin Sodium (Lovenox) 40 mg SC DAILY [facility] PRN Reason: Protocol Last Admin: 04/28/17 10:10 Dose: 40 mg Furosemide (Lasix) 40 mg IVP DAILY [facility] Last Admin: 04/28/17 10:08 Dose: 40 mg Hydralazine HCl (Apresoline) 10 mg PO QID PRN PRN Reason: for SBP>170&/or diasolic>100 Labetalol HCl (Trandate) 20 mg IV Q6H PRN PRN Reason: SBP > 200 Last Admin: 04/26/17 10:36 Dose: 20 mg Labetalol HCl (Trandate) 400 mg PO TID [facility] Last Admin: 04/28/17 13:17 Dose: 400 mg Pantoprazole Sodium (Protonix Ec Tab) 40 mg PO 0600 [facility] Last Admin: 04/28/17 06:34 Dose: 40 mg Spironolactone (Aldactone) 25 mg PO BID [facility] Last Admin: 04/28/17 10:12 Dose: 25 mg - Labs Labs: 04/28/17 07:30 04/28/17 07:30 PT 11.1 Seconds (9.9-11.8) 04/25/17 20:15 INR 1.03 (0.93-1.08) 04/25/17 20:15 APTT 31.4 Seconds (23.7-30.8) H 04/25/17 20:15 - Neurological Exam Neurological Exam: Abnormal Gait, Awake, CN II-XII Intact, Oriented x3, Reflexes Normal Neuro motor strength exam: Left Upper Extremity: 5, Right Upper Extremity: 5, Left Lower Extremity: 5, Right Lower Extremity: 5 Additional comments: NIHSS= 0 Assessment and Plan (1) Ischemic stroke Assessment & Plan: Continue aspirin, plavix, lipitor and obtain better control of blood pressure per primary care. Follow-up with outpatient primary care and neurology. Follow -up with MRA in 6 months to evaluate the potential basilar artery aneurysm. May also consider diagnostic cerebral angiogram as an outpatient. Follow up with Dr. Lobito Curiel. No further recommendations at this time if the patient is cleared from inpatient physical therapy. Thank you. Status: Acute
[2017-04-28 16:56] VITALS: TEMP 98.5
[2017-04-28 17:27] VITALS: BP 164/69; PULSE 78
--- NOTE | 2017-04-28 17:54 | CARD ---
APPROVED REPORT EXAM: Two-dimensional and M-mode echocardiogram with Doppler and color Doppler. INDICATION CVA/TIA Echo Enhancing Agent Indication: Rule Out Septal Defect Agent/Amount Used: Agitated Saline <Conclusion> Limited Study armando R/O PFO. Intact intra atrial septum by color flow and bubble study.
--- NOTE | 2017-04-28 19:21 | CP.PCM.DIS ---
<TABATHA SCHULTZ - Last Filed: 04/28/17 19:57> Provider - Provider Date of Admission: 04/25/17 20:58 Attending physician: Qasim Wheat MD Consults: Neuro: Josemanuel Nephro: Holly Cardio: Jermaine Time Spent in preparation of Discharge (in minutes): 45 Hospital Course - Lab Results Lab Results: Most Recent Lab Values WBC 8.4 10^3/ul (4.5-11.0) 04/28/17 07:30 RBC 3.72 10^6/uL (3.5-6.1) 04/28/17 07:30 Hgb 12.1 g/dL (14.0-18.0) L 04/28/17 07:30 Hct 36.2 % (42.0-52.0) L 04/28/17 07:30 MCV 97.3 fl (80.0-105.0) 04/28/17 07:30 MCH 32.5 pg (25.0-35.0) 04/28/17 07:30 MCHC 33.4 g/dl (31.0-37.0) 04/28/17 07:30 RDW 13.5 % (11.5-14.5) 04/28/17 07:30 Plt Count 281 10^3/uL (120.0-450.0) 04/28/17 07:30 MPV 9.4 fl (7.0-11.0) 04/28/17 07:30 Gran % 61.3 % (50.0-68.0) 04/28/17 07:30 Lymph % (Auto) 26.5 % (22.0-35.0) 04/28/17 07:30 Bullitt % (Auto) 8.4 % (1.0-6.0) H 04/28/17 07:30 Eos % (Auto) 3.6 % (1.5-5.0) 04/28/17 07:30 Baso % (Auto) 0.2 % (0.0-3.0) 04/28/17 07:30 Gran # 5.17 (1.4-6.5) 04/28/17 07:30 Lymph # 2.2 (1.2-3.4) 04/28/17 07:30 Bullitt # 0.7 (0.1-0.6) H 04/28/17 07:30 Eos # 0.3 (0.0-0.7) 04/28/17 07:30 Baso # 0.02 K/mm3 (0.0-2.0) 04/28/17 07:30 PT 11.1 Seconds (9.9-11.8) 04/25/17 20:15 INR 1.03 (0.93-1.08) 04/25/17 20:15 APTT 31.4 Seconds (23.7-30.8) H 04/25/17 20:15 Sodium 141 mmol/L (132-148) 04/28/17 07:30 Potassium 4.4 mmol/L (3.6-5.0) 04/28/17 07:30 Chloride 104 mmol/L (95-110) 04/28/17 07:30 Carbon Dioxide 28 mmol/L (21-33) 04/28/17 07:30 Anion Gap 13 (10-20) 04/28/17 07:30 BUN 19 mg/dL (7-21) 04/28/17 07:30 Creatinine 1.5 mg/dL (0.5-1.4) H 04/28/17 07:30 Est GFR ( Amer) 57 04/28/17 07:30 Est GFR (Non-Af Amer) 47 04/28/17 07:30 POC Glucose (mg/dL) 95 mg/dL (65-110) 04/28/17 11:20 Random Glucose 93 mg/dL (70-110) 04/28/17 07:30 Hemoglobin A1c 5.3 % (4.2-6.5) 04/27/17 05:45 Calcium 8.9 mg/dL (8.4-10.5) 04/28/17 07:30 Total Bilirubin 0.8 mg/dL (0.2-1.3) 04/28/17 07:30 AST 32 U/L (15-59) 04/28/17 07:30 ALT 25 U/L (7-56) 04/28/17 07:30 Alkaline Phosphatase 74 U/L (38-133) 04/28/17 07:30 Troponin I 0.04 ng/mL 04/25/17 20:15 Total Protein 7.4 g/dL (5.8-8.3) 04/28/17 07:30 Albumin 3.7 g/dL (3.0-4.8) 04/28/17 07:30 Globulin 3.6 gm/dL 04/28/17 07:30 Albumin/Globulin Ratio 1.0 (1.1-1.8) L 04/28/17 07:30 Triglycerides 251 mg/dL (35-160) H 04/25/17 20:15 Cholesterol 240 mg/dL (130-200) H 04/25/17 20:15 LDL Cholesterol Direct 136 mg/dL (0-129) H 04/25/17 20:15 HDL Cholesterol 46 mg/dL (29-60) 04/25/17 20:15 TSH 3rd Generation 1.2 MIU/ml (0.46-4.68) 04/27/17 05:45 Plasma Metanephrine TNP 04/27/17 05:45 Plasma Normetanephrine TNP 04/27/17 05:45 Plas Total Metaneph TNP 04/27/17 05:45 Urine Color Light yellow (YELLOW) 04/28/17 11:05 Urine Appearance Clear (CLEAR) 04/28/17 11:05 Urine pH 7.0 (4.7-8.0) 04/28/17 11:05 Ur Specific [place] 1.010 (1.005-1.035) 04/28/17 11:05 Urine Protein Negative mg/dL (<30 mg/dL) 04/28/17 11:05 Urine Glucose (UA) Negative mg/dL (NEGATIVE) 04/28/17 11:05 Urine Ketones Negative mg/dL (NEGATIVE) 04/28/17 11:05 Urine Blood Negative (NEGATIVE) 04/28/17 11:05 Urine Nitrate Negative (NEGATIVE) 04/28/17 11:05 Urine Bilirubin Negative (NEGATIVE) 04/28/17 11:05 Urine Urobilinogen 0.2 E.U./dL (<1 E.U./dL) 04/28/17 11:05 Ur Leukocyte Esterase Trace Andrew/uL (NEGATIVE) H 04/28/17 11:05 Urine RBC Negative /hpf (0-2) 04/28/17 11:05 Urine WBC 0 - 2 /hpf (0-6) 04/28/17 11:05 Ur Epithelial Cells 0 - 2 /hpf (0-5) 04/28/17 11:05 Urine Bacteria Neg (NEG) 04/28/17 11:05 Ur Random Creatinine 38 mg/dL 04/28/17 11:05 Urine Microalbumin 66.8 mg/L (0.0-16.6) H 04/28/17 11:05 Blood Type O NEGATIVE 04/25/17 20:15 Blood Type Confirm O NEGATIVE 04/25/17 21:00 Antibody Screen Negative 04/25/17 20:15 BBK History Checked No verified bt 04/25/17 20:15 - Hospital Course Hospital Course: 62 year old obese, right handed, male with a past medical history significant for hypertension, hyperlipidemia, and TIAs who presents to [facility] for intermittent, left sided weakness and slurred speech. He reports that he has had about 6 bouts of left sided weakness in the past two days, each lasting no more than 15 minutes, but that he had not had any slurred speech until his arrival in the ED. 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 In the ED, labs and imaging were obtained. Labs were unremarkable aside from hyperlipidemia and elevated creatinine. CT head was negative for bleed. EKG showed NSR. Carotid US was obtained which was negative. Extremity US was obtained which was negative for DVT. Pt was admitted for evaluation and treatment for possible stroke or TIA. Cardio was consulted and recommended aggressive control of cholesterol, compliance with medications, echocardiogram and stress test. Echo showed EF of 45-50%. Myocardial stress test was obtained and showed findings suggestive of cardiomegaly. Nephro was consulted, recommedations were appreciated for medications and pt's acute kidney injury. It was determined that the patient's fluctuating BP and noncompliance with home medications is the likely cause of the elevated renal enzymes. However, nephro also recommended evaluation for secondary HTN. Renal artery duplex was obtained and was negative for renal artery stenoses. Normal thyroid function. Neuro was consulted and recommendations where appreciated, which included MRI of the brain , MRA of the head and neck, and echocardiogram with bubble study. Brain MRI was obtained and showed several small areas of abnormal diffusion in the right white matter and basal ganglia most likely representing acute or subacute infarcts. 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 Echocardiogram with bubble study is negative for patent foramen ovale, which makes cardioembolic stroke unlikely. It was found that the patient had suffered from several subacute ischemic strokes. Neuro then recommended outpatient follow up and strict compliance with HTN control. Today, pt was seen and examined at bedside. Pt denied any acute overnight events. Pt states that he feels better with no focal weakness. Pt states he is ready to go home so he can go back to work. Pt denied CP, SOB, n/v/ d, chills, fever, OLIVA, changes in vision, focal weakness or sensory changes, or vertigo. Pt was educated on the importance of strict HTN control and the risks associated with HTN. Pt was advised to follow up as an outpatient to further work up his neurologic findings and manage his HTN. Discharge Exam - Head Exam Head Exam: ATRAUMATIC, NORMOCEPHALIC - Eye Exam Eye Exam: EOMI, PERRL - ENT Exam ENT Exam: Mucous Membranes Moist - Neck Exam Neck exam: Full Rom - Respiratory Exam Respiratory Exam: Clear to PA & Lateral. absent: Rales, Rhonchi, Wheezes - Cardiovascular Exam Cardiovascular Exam: RRR. absent: Diastolic murmur, Gallop, Rubs, Systolic Murmur - GI/Abdominal Exam GI & Abdominal Exam: Soft. absent: Distended, Guarding, Rebound, Tenderness - Extremities Exam Extremities exam: normal inspection - Back Exam Back exam: NORMAL INSPECTION - Neurological Exam Neurological exam: Alert, CN II-XII Intact, Oriented x3 - Psychiatric Exam Psychiatric exam: Normal Affect, Normal Mood - Skin Skin Exam: Dry, Intact, Normal Color, Warm Discharge Plan - Discharge Medications Prescriptions: Atorvastatin [Lipitor] 40 mg PO DIN #30 tab Clopidogrel [Plavix] 75 mg PO DAILY #30 tab Furosemide [Lasix] 40 mg PO DAILY #30 tablet Labetalol [Trandate] 400 mg PO TID #90 tab Spironolactone [Aldactone] 25 mg PO BID #60 tab - Follow Up Plan Condition: FAIR Disposition: HOME/ ROUTINE Instructions: Heart Failure (GEN), Cholesterol and Your Health (GEN), Ischemic Stroke (GEN), Chronic Hypertension (GEN), Low Sodium Diet (GEN), Impaired Kidney Function (GEN) Additional Instructions: 1. Follow up with PMD DR. miller in 1 week. 2. Follow up with cardiology DR. Dean. 3. Follow up with Neurology. Follow up with neurology DR. Curiel. repeat MRA of head in 6 months. 4. Continue BP medications. 5. Follow up with nephrology Dr. Barrera. Diet: low salt, heart heathy, low cholesterol diet Please participate in a "personalized" physical regimen prescribed by our primary physician. Lifestyle changes needs to be performed and adhered to. Weigh daily, if weight gain of 2 lbs or more, edema/swelling, shortness of breath - call doctor. If weakness is noted, if slurred speech is noted, if severe headache is noted and/or facial droop noted - call 911 immediately. Patient states he refuses the flu and the pneumococcal vaccines and continues to refuse as of this writing. <Qasim Wheat - Last Filed: 04/29/17 07:55> Provider - Provider Date of Admission: 04/25/17 20:58 Attending physician: Qasim Wheat MD Hospital Course - Lab Results Lab Results: Most Recent Lab Values WBC 8.4 10^3/ul (4.5-11.0) 04/28/17 07:30 RBC 3.72 10^6/uL (3.5-6.1) 04/28/17 07:30 Hgb 12.1 g/dL (14.0-18.0) L 04/28/17 07:30 Hct 36.2 % (42.0-52.0) L 04/28/17 07:30 MCV 97.3 fl (80.0-105.0) 04/28/17 07:30 MCH 32.5 pg (25.0-35.0) 04/28/17 07:30 MCHC 33.4 g/dl (31.0-37.0) 04/28/17 07:30 RDW 13.5 % (11.5-14.5) 04/28/17 07:30 Plt Count 281 10^3/uL (120.0-450.0) 04/28/17 07:30 MPV 9.4 fl (7.0-11.0) 04/28/17 07:30 Gran % 61.3 % (50.0-68.0) 04/28/17 07:30 Lymph % (Auto) 26.5 % (22.0-35.0) 04/28/17 07:30 Bullitt % (Auto) 8.4 % (1.0-6.0) H 04/28/17 07:30 Eos % (Auto) 3.6 % (1.5-5.0) 04/28/17 07:30 Baso % (Auto) 0.2 % (0.0-3.0) 04/28/17 07:30 Gran # 5.17 (1.4-6.5) 04/28/17 07:30 Lymph # 2.2 (1.2-3.4) 04/28/17 07:30 Bullitt # 0.7 (0.1-0.6) H 04/28/17 07:30 Eos # 0.3 (0.0-0.7) 04/28/17 07:30 Baso # 0.02 K/mm3 (0.0-2.0) 04/28/17 07:30 PT 11.1 Seconds (9.9-11.8) 04/25/17 20:15 INR 1.03 (0.93-1.08) 04/25/17 20:15 APTT 31.4 Seconds (23.7-30.8) H 04/25/17 20:15 Sodium 141 mmol/L (132-148) 04/28/17 07:30 Potassium 4.4 mmol/L (3.6-5.0) 04/28/17 07:30 Chloride 104 mmol/L (95-110) 04/28/17 07:30 Carbon Dioxide 28 mmol/L (21-33) 04/28/17 07:30 Anion Gap 13 (10-20) 04/28/17 07:30 BUN 19 mg/dL (7-21) 04/28/17 07:30 Creatinine 1.5 mg/dL (0.5-1.4) H 04/28/17 07:30 Est GFR ( Amer) 57 04/28/17 07:30 Est GFR (Non-Af Amer) 47 04/28/17 07:30 POC Glucose (mg/dL) 95 mg/dL (65-110) 04/28/17 11:20 Random Glucose 93 mg/dL (70-110) 04/28/17 07:30 Hemoglobin A1c 5.3 % (4.2-6.5) 04/27/17 05:45 Calcium 8.9 mg/dL (8.4-10.5) 04/28/17 07:30 Total Bilirubin 0.8 mg/dL (0.2-1.3) 04/28/17 07:30 AST 32 U/L (15-59) 04/28/17 07:30 ALT 25 U/L (7-56) 04/28/17 07:30 Alkaline Phosphatase 74 U/L (38-133) 04/28/17 07:30 Troponin I 0.04 ng/mL 04/25/17 20:15 Total Protein 7.4 g/dL (5.8-8.3) 04/28/17 07:30 Albumin 3.7 g/dL (3.0-4.8) 04/28/17 07:30 Globulin 3.6 gm/dL 04/28/17 07:30 Albumin/Globulin Ratio 1.0 (1.1-1.8) L 04/28/17 07:30 Triglycerides 251 mg/dL (35-160) H 04/25/17 20:15 Cholesterol 240 mg/dL (130-200) H 04/25/17 20:15 LDL Cholesterol Direct 136 mg/dL (0-129) H 04/25/17 20:15 HDL Cholesterol 46 mg/dL (29-60) 04/25/17 20:15 TSH 3rd Generation 1.2 MIU/ml (0.46-4.68) 04/27/17 05:45 Plasma Metanephrine TNP 04/27/17 05:45 Plasma Normetanephrine TNP 04/27/17 05:45 Plas Total Metaneph TNP 04/27/17 05:45 Urine Color Light yellow (YELLOW) 04/28/17 11:05 Urine Appearance Clear (CLEAR) 04/28/17 11:05 Urine pH 7.0 (4.7-8.0) 04/28/17 11:05 Ur Specific [place] 1.010 (1.005-1.035) 04/28/17 11:05 Urine Protein Negative mg/dL (<30 mg/dL) 04/28/17 11:05 Urine Glucose (UA) Negative mg/dL (NEGATIVE) 04/28/17 11:05 Urine Ketones Negative mg/dL (NEGATIVE) 04/28/17 11:05 Urine Blood Negative (NEGATIVE) 04/28/17 11:05 Urine Nitrate Negative (NEGATIVE) 04/28/17 11:05 Urine Bilirubin Negative (NEGATIVE) 04/28/17 11:05 Urine Urobilinogen 0.2 E.U./dL (<1 E.U./dL) 04/28/17 11:05 Ur Leukocyte Esterase Trace Andrew/uL (NEGATIVE) H 04/28/17 11:05 Urine RBC Negative /hpf (0-2) 04/28/17 11:05 Urine WBC 0 - 2 /hpf (0-6) 04/28/17 11:05 Ur Epithelial Cells 0 - 2 /hpf (0-5) 04/28/17 11:05 Urine Bacteria Neg (NEG) 04/28/17 11:05 Ur Random Creatinine 38 mg/dL 04/28/17 11:05 U Random Total Protein 253 mg/g creat (22-128) H 04/28/17 11:05 Urine Microalbumin 66.8 mg/L (0.0-16.6) H 04/28/17 11:05 Blood Type O NEGATIVE 04/25/17 20:15 Blood Type Confirm O NEGATIVE 04/25/17 21:00 Antibody Screen Negative 04/25/17 20:15 BBK History Checked No verified bt 04/25/17 20:15 Attending/Attestation - Attestation I have personally seen and examined this patient.: Yes I have fully participated in the care of the patient.: Yes I have reviewed all pertinent clinical information, including history, physical exam and plan: Yes Notes (Text): 04/29/17 07:52 attending note; Patient seen and examined with resident. Patient is a 62-year-old male with a past medical history of hypertension, questionable TIA, allergic reaction to ASIA inhibitor is admitted with intermittent left-sided weakness and slurred speech. CT head showed chronic microvascular changes. MRI showed multiple subacute strokes. case discussed with neurologist in detail. MRA of the head and neck o showed small basilar aneurysm. Echocardiogram with bubble study is limited but no septal defect. Abnormal EKG; secondary to uncontrolled hypertension. Cardiology evaluation appreciated. Stress test showed cardiomyopathy. Acute renal failure; resolving.possibly secondary to fluctuation in BP. Patient has uncontrolled blood pressure for the past 2 years. Medication compliance/dietary education insisted. physical therapy evaluation appreciated. No residual weakness noted. Upon discharge the patient will follow up with PMD Dr. Corwin Miller. Diagnosis; Uncontrolled hypertension Ischemic stroke Cardiomyopathy Acute renal failure Noncompliance
== END 2017-04-28 19:01 | disposition home or self-care (01) | DRG 533 ==
LOC: ED 19:26 → ERH 20:58 → 2RSO 23:09
PROVIDERS: ADMIT Internal Medicine; ATTEND Internal Medicine
DX: I63.9 Cerebral infarction, unspecified (principal); N17.9 Acute kidney failure, unspecified; I42.9 Cardiomyopathy, unspecified; I67.1 Cerebral aneurysm, nonruptured; E66.01 Morbid (severe) obesity due to excess calories; I08.3 Combined rheumatic disorders of mitral, aortic and tricuspid valves; I13.0 Hypertensive heart and chronic kidney disease with heart failure and stage 1 through stage 4 chronic kidney disease, or unspecified chronic kidney disease; I50.9 Heart failure, unspecified; N18.2 Chronic kidney disease, stage 2 (mild); E87.6 Hypokalemia; N18.9 Chronic kidney disease, unspecified; R29.700 NIHSS score 0; E78.5 Hyperlipidemia, unspecified; F40.240 Claustrophobia; F41.0 Panic disorder [episodic paroxysmal anxiety]; I73.9 Peripheral vascular disease, unspecified; I89.0 Lymphedema, not elsewhere classified; Z79.82 Long term (current) use of aspirin; Z82.49 Family history of ischemic heart disease and other diseases of the circulatory system; Z86.73 Personal history of transient ischemic attack (TIA), and cerebral infarction without residual deficits; Z90.49 Acquired absence of other specified parts of digestive tract; Z91.14 Patient's other noncompliance with medication regimen; Z91.19 Patient's noncompliance with other medical treatment and regimen; R40.2412 Glasgow coma scale score 13-15, at arrival to emergency department; M54.9 Dorsalgia, unspecified; D64.9 Anemia, unspecified; J34.2 Deviated nasal septum; Z83.3 Family history of diabetes mellitus; Z88.1 Allergy status to other antibiotic agents; Z88.8 Allergy status to other drugs, medicaments and biological substances; Z87.892 Personal history of anaphylaxis; R73.03 Prediabetes; I16.9 Hypertensive crisis, unspecified; Z68.37 Body mass index [BMI] 37.0-37.9, adult

== ENCOUNTER 2018-10-27 05:48 | Emergency (ER) | payer MEDICARE, MEDICAID ==
[2018-10-27 06:08] VITALS: BMI 44.9
[2018-10-27 06:11] VITALS: RESP 18; TEMP 97.6
[2018-10-27] MEDS ORDERED: guaiFENesin 200 mg/10 ml Syrup UD PO ONE (07:18)
--- NOTE | 2018-10-27 07:55 | ED PDOC ---
Arrival/HPI - General Chief Complaint: Cough, Cold, Congestion Historian: Patient - History of Present Illness Narrative History of Present Illness (Text): 10/27/18 07:30 Bob Palacio is a 63 year old male, with a past medical history of hypertension, hyperlipidemia, and TIA's, who presents to the emergency department complaining of a cold since around 4 days ago. Patient informs runny nose, head pressure, and chills. Patient denies any fevers, dizziness, chest pain, shortness of breath, cough, abdominal pain, nausea, vomiting, diarrhea, or any other complaint. Time/Duration: < week Symptom Onset: Gradual Symptom Course: Unchanged Activities at Onset: Light Context: Home Past Medical History - Provider Review Nursing Documentation Reviewed: Yes - Cardiac Hx Cardiac Disorders: Yes Hx Hypertension: Yes - Pulmonary Hx Respiratory Disorders: No - Neurological Hx Neurological Disorder: No - HEENT Hx HEENT Disorder: No - Renal Hx Renal Disorder: No - Endocrine/Metabolic Hx Endocrine Disorders: No - Hematological/Oncological Hx Anemia: Yes - Integumentary Hx Dermatological Disorder: No - Musculoskeletal/Rheumatological Hx Musculoskeletal Disorders: No - Gastrointestinal Hx Gastrointestinal Disorders: No Hx Diverticulitis: Yes - Genitourinary/Gynecological Hx Genitourinary Disorders: No - Psychiatric Hx Psychophysiologic Disorder: No Hx Substance Use: No - Surgical History Hx Appendectomy: Yes - Anesthesia Hx Anesthesia: Yes Hx Anesthesia Reactions: No Hx Malignant Hyperthermia: No Family/Social History - Physician Review Nursing Documentation Reviewed: Yes Family/Social History: Hypertension Smoking Status: Never Smoked Hx Alcohol Use: No Hx Substance Use: No Allergies/Home Meds Allergies/Adverse Reactions: Allergies ASIA Inhibitors Allergy (Severe, Verified 04/17/17 05:51) ANGIOEDEMA levofloxacin [From Levaquin] Allergy (Verified 04/17/17 05:51) ANAPHYLAXIS Home Medications: Home Meds Medication Instructions Recorded Confirmed Aspirin [Aspirin EC] 81 mg PO DAILY 04/30/16 10/27/18 Review of Systems - Physician Review All systems were reviewed & negative as marked: Yes - Review of Systems Constitutional: Other (Chills). absent: Fevers Respiratory: absent: SOB, Cough Cardiovascular: absent: Chest Pain Gastrointestinal: absent: Abdominal Pain, Diarrhea, Nausea, Vomiting Neurological: absent: Dizziness Physical Exam Vital Signs Reviewed: Yes Vital Signs Temp Pulse Resp BP Pulse Ox 10/27/18 06:30 75 18 175/81 H 100 10/27/18 06:09 97.6 F 80 18 188/112 H 98 Temperature: Afebrile Blood Pressure: Hypertensive Pulse: Regular Respiratory Rate: Normal Appearance: Positive for: Well-Appearing, Non-Toxic, Comfortable Pain Distress: None Mental Status: Positive for: Alert and Oriented X 3 - Systems Exam Head: Present: Atraumatic, Normocephalic. No: Tenderness (No tenderness to frontal or maxillary sinuses ) Pupils: Present: PERRL Extroacular Muscles: Present: EOMI Conjunctiva: Present: Normal Mouth: Present: Moist Mucous Membranes Neck: Present: Normal Range of Motion Respiratory/Chest: Present: Clear to Auscultation, Good Air Exchange. No: Respiratory Distress, Accessory Muscle Use, Wheezes, Rales, Rhonchi Cardiovascular: Present: Regular Rate and Rhythm, Normal S1, S2. No: Murmurs Abdomen: No: Tenderness, Distention, Peritoneal Signs Back: Present: Normal Inspection Upper Extremity: Present: Normal Inspection. No: Cyanosis, Edema Lower Extremity: Present: Normal Inspection. No: Edema Neurological: Present: GCS=15, CN II-XII Intact, Speech Normal Skin: Present: Warm, Dry, Normal Color. No: Rashes Psychiatric: Present: Alert, Oriented x 3, Normal Insight, Normal Concentration Medical Decision Making ED Course and Treatment: 10/27/18 08:25 Impression: Patient is a 63 year old male who presents to the emergency department complaining of cold. Plan: -- Robitussin -- Trandate -- Influenza A/B -- Reassess and disposition Prior Visits: Notes and results from previous visits were reviewed. Progress Notes: - Medication Orders Current Medication Orders: Discontinued Medications Guaifenesin (Robitussin) 200 mg PO ONCE ONE Stop: 10/27/18 07:19 Last Admin: 10/27/18 07:24 Dose: 200 mg - Scribe Statement The provider has reviewed the documentation as recorded by the Scribe Amor Collins All medical record entries made by the Scribe were at my direction and personally dictated by me. I have reviewed the chart and agree that the record accurately reflects my personal performance of the history, physical exam, medical decision making, and the department course for this patient. I have also personally directed, reviewed, and agree with the discharge instructions and disposition. Disposition/Present on Arrival - Present on Arrival Any Indicators Present on Arrival: No History of DVT/PE: No History of Uncontrolled Diabetes: No Urinary Catheter: No History of Decub. Ulcer: No History Surgical Site Infection Following: None - Disposition Have Diagnosis and Disposition been Completed?: Yes Diagnosis: Acute rhinosinusitis Disposition: HOME/ ROUTINE Disposition Time: 07:48 Patient Plan: Discharge Condition: STABLE Discharge Instructions (ExitCare): Sinusitis, Adult (DC), Sinus Headache (DC) Print Language: DOMINICAN Additional Instructions: All medical record entries made by the Scribe were at my direction and personally dictated by me. I have reviewed the chart and agree that the record accurately reflects my personal performance of the history, physical exam, medical decision making, and the department course for this patient. I have also personally directed, reviewed, and agree with the discharge instructions and disposition. Please take medications as prescribed Please take SudaFed only when home and not operating any heavy machinery Please see your PCP in 1 week Prescriptions: Methylprednisolone [Medrol Dose Pack (21 tabs)] 4 mg PO DAILY #21 mg Phenylephrine/Dm/Acetaminop/GG [Sudafed PE Pressure+Pain+Cold] 1 each PO Q8H #10 tablet Referrals: Corwin Miller MD [Primary Care Provider] - Follow up with primary Forms: [employer] (Azeri), WORK NOTE
[2018-10-27 08:15] VITALS: PULSE 77; O2SAT 99
[2018-10-27 08:38] VITALS: BP 176/118
== END 2018-10-27 08:40 | disposition home or self-care (01) ==
LOC: ED 05:48
DX: J01.90 Acute sinusitis, unspecified (principal); E78.5 Hyperlipidemia, unspecified; I10 Essential (primary) hypertension; Z82.49 Family history of ischemic heart disease and other diseases of the circulatory system; Z86.73 Personal history of transient ischemic attack (TIA), and cerebral infarction without residual deficits